=== PATIENT | male | born 1960 | race Caucasian/White ===

== ENCOUNTER 2017-03-01 14:39 | Emergency (ER) | payer MEDICARE, OTHER ==
[~2017-03-01] VITALS: Ht 175.3 cm; Wt 91.0 kg
[2017-03-01 14:41] VITALS: BP 144/81; PULSE 82; RESP 18; TEMP 99.1; O2SAT 97
--- NOTE | 2017-03-01 14:49 | PD ---
Physical Exam Time Seen by Provider: 14:47 Narrative Pt presents to the emergency department voluntarily for psychiatric evaluation for depression. Hx of bipolar disorder. Not taking any medications. Denies any ingestion of substances. Denies drugs or alcohol. VSS. Patient transported to J pod from triage. Data Data Last Documented VS Vital Signs Date Time Temp Pulse Resp B/P Pulse Ox O2 Delivery O2 Flow Rate FiO2 03/01/17 14:41 99.1 82 18 144/81 97 Room Air MDM Supervised Visit with ELVIS: Amanda Hanks Mar 01, 2017 14:49
--- NOTE | 2017-03-01 15:22 | PD ---
HPI Chief Complaint: Suicide Ideation/Attempt Time Seen by Provider: 15:18 Travel History International Travel<30 days: No Contact w/Intl Traveler<30days: No Traveled to known affect area: No History of Present Illness HPI 56-year-old male that presents to the ED for evaluation of psych. Patient comes here voluntarily for evaluation of psychiatric illness. Per patient he is bipolar and she takes medications for it but he ran out of his medication multiple days ago when he was released from half-way. Per patient he lost his Medicaid. Per patient he feels that he is more suicidal or having thoughts of hurting himself because he ran out of his medications. He denies any new injuries. He does state that he has a history of a chronic hernia in his left lower quadrant as well as left knee pain which is chronic from a previous injury during the . He denies any other medical problems. He says that his symptoms are moderate. He denies any suicidal ideation. He denies any drugs or alcohol. Per patient he tried to contact his community relations officer to get some help in the time to come here. Hence patient came here. PFSH Past Medical History Cardiovascular Problems: Yes (HTN) Social History Alcohol Use: No Tobacco Use: No Substance Use: No Allergies-Medications (Allergen,Severity, Reaction): Coded Allergies: Darvocet-N 100 (Verified Allergy, Severe, Seizures, 03/01/17) Review of Systems Except as stated in HPI: all other systems reviewed are Neg Physical Exam Narrative GENERAL: SKIN: Warm and dry. HEAD: Atraumatic. Normocephalic. EYES: Pupils equal and round. No scleral icterus. No injection or drainage. ENT: No nasal bleeding or discharge. Mucous membranes pink and moist. Tongue is midline. No uvula deviation. NECK: Trachea midline. No JVD. CARDIOVASCULAR: Regular rate and rhythm. No murmurs, S3, S4. RESPIRATORY: No accessory muscle use. Clear to auscultation. Breath sounds equal bilaterally. GASTROINTESTINAL: Abdomen soft, non-tender, nondistended. Hepatic and splenic margins not palpable. MUSCULOSKELETAL: Extremities without clubbing, cyanosis, or edema. No obvious deformities. Full range of motion of the upper and lower extremities bilaterally. Patient has a surgical scar noted on the anterior aspect of the left knee. Full range of motion of this knee. Patient does have a reducible hernia on the left lower quadrant of the abdomen. NEUROLOGICAL: Awake and alert. No obvious cranial nerve deficits. Motor grossly within normal limits. Five out of 5 muscle strength in the arms and legs. Normal speech. PSYCHIATRIC: Appropriate mood and affect; insight and judgment normal. Data Data Last Documented VS Vital Signs Date Time Temp Pulse Resp B/P Pulse Ox O2 Delivery O2 Flow Rate FiO2 03/01/17 14:41 99.1 82 18 144/81 97 Room Air Orders Complete Blood Count With Diff (03/01/17 15:02) Comprehensive Metabolic Panel (03/01/17 15:02) Psych Screen (03/01/17 15:) Drug Screen, Random Urine (03/01/17 15:) Alcohol (Ethanol) (03/01/17 15:) Valproic Acid (Depakene) (03/01/17 15:18) Diet Regular Basic (03/01/17 Dinner) Labs Laboratory Tests Test 03/01/17 03/01/17 18:00 18:24 White Blood Count 6.0 TH/MM3 Red Blood Count 4.49 MIL/MM3 Hemoglobin 14.0 GM/DL Hematocrit 42.3 % Mean Corpuscular Volume 94.4 FL Mean Corpuscular Hemoglobin 31.2 PG Mean Corpuscular Hemoglobin 33.1 % Concent Red Cell Distribution Width 13.4 % Platelet Count 217 TH/MM3 Mean Platelet Volume 9.9 FL Neutrophils (%) (Auto) 60.8 % Lymphocytes (%) (Auto) 24.7 % Monocytes (%) (Auto) 10.8 % Eosinophils (%) (Auto) 2.8 % Basophils (%) (Auto) 0.9 % Neutrophils # (Auto) 3.6 TH/MM3 Lymphocytes # (Auto) 1.5 TH/MM3 Monocytes # (Auto) 0.6 TH/MM3 Eosinophils # (Auto) 0.2 TH/MM3 Basophils # (Auto) 0.1 TH/MM3 CBC Comment DIFF FINAL Differential Comment Sodium Level 139 MEQ/L Potassium Level 4.1 MEQ/L Chloride Level 105 MEQ/L Carbon Dioxide Level 28.9 MEQ/L Anion Gap 5 MEQ/L Blood Urea Nitrogen 18 MG/DL Creatinine 0.88 MG/DL Estimat Glomerular Filtration 90 ML/MIN Rate Random Glucose 91 MG/DL Calcium Level 9.0 MG/DL Total Bilirubin 0.3 MG/DL Aspartate Amino Transf 26 U/L (AST/SGOT) Alanine Aminotransferase 22 U/L (ALT/SGPT) Alkaline Phosphatase 71 U/L Total Protein 7.4 GM/DL Albumin 3.9 GM/DL Valproic Acid (Depakene) Level 12 MCG/ML Ethyl Alcohol Level 4 MG/DL Urine Opiates Screen NEG Urine Barbiturates Screen NEG Urine Amphetamines Screen NEG Urine Benzodiazepines Screen NEG Urine Cocaine Screen NEG Urine Cannabinoids Screen NEG MDM Medical Decision Making Medical Screen Exam Complete: Yes Emergency Medical Condition: Yes Medical Record Reviewed: Yes Interpretation(s) CBC & BMP Diagram 03/01/17 18:00 Differential Diagnosis Depression versus suicidal ideation versus anxiety versus adjustment disorder versus mood disorder versus bipolar disorder versus schizophrenia versus paranoid disorder versus psychosis versus substance abuse versus alcohol abuse versus alcohol induced psychosis versus homicidality addition versus cutting versus personality disorder Narrative Course 56-year-old male that presents to the ED for evaluation of psych. Patient was properly examined and was found to have signs and symptoms consistent with psychiatric illness. No sign of acute medical distress. Labs were ordered. Patient will be medically cleared. Okay to be seen by psych. Mental health screening was discussed with the patient. Diagnosis Primary Impression: Bipolar 1 disorder Mandeep Wyatt Mar 01, 2017 15:21
[2017-03-01 18:21] LABS: AUTOMATED NEUTROPHIL # 3.6 TH/MM3 (1.8-7.7); BASOPHIL # 0.1 TH/MM3 (0-0.2); BASOPHIL % 0.9 % (0.0-2.0); EOSINOPHIL # 0.2 TH/MM3 (0-0.4); EOSINOPHIL % 2.8 % (0.0-4.0); HEMATOCRIT 42.3 % (39.0-51.0); HEMO FLAGS DIFF FINAL; LYMPH % 24.7 % (9.0-44.0); LYMPHOCYTE # 1.5 TH/MM3 (1.0-4.8); MEAN CELL VOLUME 94.4 FL (80.0-100.0); MEAN CORPUSCULAR HEMOGLOBIN 31.2 PG (27.0-34.0); MEAN CORPUSCULAR HGB CONC 33.1 % (32.0-36.0); MONO % 10.8 % (0.0-8.0); NEUT % 60.8 % (16.0-70.0); PLATELET COUNT 217 TH/MM3 (150-450); RED BLOOD COUNT 4.49 MIL/MM3 (4.50-5.90); RED CELL DISTRIBUTION WIDTH 13.4 % (11.6-17.2)
[2017-03-01 18:47] LABS: AMPHETAMINE, URINE NEG (NEG); BARBITURATES, URINE NEG (NEG); COCAINE, URINE NEG (NEG)
[2017-03-01 19:08] LABS: ALKALINE PHOSPHATASE 71 U/L (45-117); ALT (GPT) 22 U/L (12-78); ANION GAP 5 MEQ/L (5-15); AST (GOT) 26 U/L (15-37); BICARBONATE 28.9 MEQ/L (21.0-32.0); BLOOD UREA NITROGEN 18 MG/DL (7-18); CHLORIDE 105 MEQ/L (98-107); GLOMERULAR FILTRATION RATE 90 ML/MIN (>89); POTASSIUM 4.1 MEQ/L (3.5-5.1); SODIUM (NA) 139 MEQ/L (136-145); TOTAL BILIRUBIN ADULT 0.3 MG/DL (0.2-1.0)
[2017-03-02 02:00] VITALS: BP 137/77; PULSE 67; RESP 18; O2SAT 99
[2017-03-02 06:29] VITALS: BP 160/76; PULSE 62; RESP 18; O2SAT 99
[2017-03-02] MEDS ORDERED: ONDANSETRON ODT 4 MG TAB PO PRN (12:15)
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
[2017-03-02] MEDS ORDERED: DEPA500T PO (13:07)
[2017-03-02] MEDS ORDERED: IBUPROFEN 800 MG TAB PO SCH (14:00)
[2017-03-02] MEDS ORDERED: DIVALPROEX DR 500 MG TABEC PO SCH (14:00)
== END 2017-03-02 15:18 | disposition home or self-care (01) ==
LOC: NEPJ 14:39
DX: F31.9 Bipolar disorder, unspecified (principal); Z79.899 Other long term (current) drug therapy
CPT/HCPCS: 80053; 80164; 80307; 85025; 99284

== ENCOUNTER 2017-05-06 23:03 | Emergency (ER) | payer MEDICARE, MEDICAID ==
[~2017-05-06] VITALS: Ht 175.3 cm; Wt 92.0 kg
[~2017-05-06 23:03] MED LIST: DEPA500T PO
[2017-05-06 23:04] VITALS: BP 149/72; PULSE 96; RESP 16; TEMP 99.4; O2SAT 98
--- NOTE | 2017-05-06 23:21 | PD ---
Physical Exam Date Seen by Provider: May 06, 2017 Time Seen by Provider: 23:20 Data Data Last Documented VS Vital Signs Date Time Temp Pulse Resp B/P Pulse Ox O2 Delivery O2 Flow Rate FiO2 05/06/17 23:04 99.4 96 16 149/72 98 Room Air [facility] Supervised Visit with ELVIS: No Narrative Course 56 YO male with complaint of left knee pain after "twisting it" this morning. Hx knee replacement ~7 yrs ago. Vitals reviewed. Patient seen in triage. Awaiting bed placement. Valeria Morocho May 06, 2017 23:21
--- NOTE | 2017-05-06 23:40 | PD ---
HPI Chief Complaint: Injury Time Seen by Provider: 23:32 Travel History International Travel<30 days: No Contact w/Intl Traveler<30days: No Traveled to known affect area: No History of Present Illness HPI 56-year-old white male presents to emergency Department with complaints of left knee pain. He states he had knee replacement 7 years ago. He was at a concert at the [employer] when he was walking in his left knee popped. Since then he's had pain to the medial aspect of the knee. He states that he does not recall twisting or having any injury. He states that he has discomfort with ambulation. Some relief with remaining still. Patient states that he lives in [place] and is down visiting friends here in [facility]. PFSH Past Medical History Narrative Medical Hypertension, arthritis, bipolar, anxiety, diverticulitis, perforated viscus Bipolar Disorder: Yes Anxiety: Yes Cardiovascular Problems: Yes (HTN) Hypertension: Yes Psychiatric: Yes (bipolar, PTSD, anxiety) Thyroid Disease: Yes Tetanus Vaccination: < 5 Years Past Surgical History Narrative Surgical Left knee replacement, perforated viscus with diverting colostomy with reversal , abdominal hernia repair Social History Alcohol Use: No Tobacco Use: No Substance Use: No Allergies-Medications (Allergen,Severity, Reaction): Coded Allergies: Darvocet-N 100 (Verified Allergy, Severe, Seizures, 05/06/17) Reported Meds & Prescriptions Reported Meds & Active Scripts Active Depakote DR (Divalproex Sodium) 500 Mg Tabdr 500 Mg PO BID 14 Days Review of Systems Except as stated in HPI: all other systems reviewed are Neg General / Constitutional: No: Fever, Chills Eyes: No: Blurred Vision, Photophobia HENT: No: Headaches, Sore Throat Cardiovascular: No: Chest Pain or Discomfort, Palpitations Respiratory: No: Cough, Shortness of Breath Gastrointestinal: Positive: Nausea, Vomiting, Diarrhea (patient had nausea, vomiting and diarrhea earlier. His last episode was earlier this afternoon. None now.) Genitourinary: No: Frequency, Dysuria Musculoskeletal: Positive: Arthralgias, Limited ROM, Pain Skin: No Itching, No Dryness Physical Exam Narrative GENERAL: This is a well-nourished, well-developed patient, in no apparent distress. SKIN: No rashes, ecchymoses or lesions. Warm and dry. HEAD: Atraumatic. Normocephalic. EYES: PERRL, EOMI, no discharge or injection. No scleral icterus. EARS: Clear NOSE: Nasal turbinates appear normal. THROAT: Mucosa pink and moist. Airway patent. NECK: Trachea midline. supple, moves head freely. LUNGS: Clear to auscultation. CV: Regular in rhythm. ABDOMEN: Soft nontender. EXT: No clubbing cyanosis or edema. Examination of left lower extremity reveals no obvious joint effusion. He has a large surgical scar over the anterior knee. He has full extension and full flexion. There is mild tenderness to the medial component of the knee. Patient ambulates with an antalgic gait. He has no pain in the hip, ankle or foot. Intact sensation with good distal pulses. Data Data Last Documented VS Vital Signs Date Time Temp Pulse Resp B/P Pulse Ox O2 Delivery O2 Flow Rate FiO2 05/06/17 23:04 99.4 96 16 149/72 98 Room Air Orders Knee, Complete (4vws) (05/06/17 23:27) [facility] Medical Decision Making Medical Screen Exam Complete: Yes Emergency Medical Condition: Yes Medical Record Reviewed: Yes Interpretation(s) Left knee: Status post knee replacement. No evidence of fracture. No evidence of hardware loosening. Differential Diagnosis MDM: High Differential diagnoses: Fracture, sprain, strain, dislocation, contusion, neurovascular injury Narrative Course X-ray of the left knee is negative for acute injury. This is left knee sprain Patient's given Motrin 800 mg by mouth. Diagnosis Primary Impression: Left knee sprain Qualified Code: S83.92XA - Sprain of left knee, unspecified ligament, initial encounter Patient Instructions: General Instructions Additional Instructions: Rest. Elevation. Ice packs for the next 3 days. Rafita wrap. Activity as tolerated. Medications as directed Follow-up with an orthopedist or your doctor in one week. Return to the ER if any problems Med/Other Pt SpecificInfo: Prescription(s) given Disposition: 01 DISCHARGE HOME Condition: Stable Guy Goldman May 06, 2017 23:40
[2017-05-06] MEDS ORDERED: DICL75TA PO (23:41)
[2017-05-06] MEDS ORDERED: CELE10TA PO (23:43)
[2017-05-06] MEDS ORDERED: LISI-515 PO (23:43)
[2017-05-06] MEDS ORDERED: LATA0.002 EACH EYE (23:43)
[2017-05-06] MEDS ORDERED: TIMO0.5S30 EACH EYE (23:43)
[2017-05-06] MEDS ORDERED: LEVO25TA4 PO (23:43)
[2017-05-06] MEDS ORDERED: IBUPROFEN 800 MG TAB PO ONE (23:45)
--- NOTE | 2017-05-07 00:06 | RADRPT ---
EXAM DATE/TIME: 05/06/2017 23:55 [facility] COMPARISON: No previous studies available for comparison. INDICATIONS : [place] "pop" 3 days ago. Today noticed swelling and throbbing. No known injury. Total knee replacement 7 years ago. MEDICAL HISTORY : None. SURGICAL HISTORY : Total knee replacement, left. ENCOUNTER: Initial ACUITY: 3 days PAIN SCORE: 6/10 LOCATION: Left knee FINDINGS: 5 views of the left knee. Longstem total knee prosthesis in place. Bone alignment within normal limit s. No evidence of fracture. Small joint effusion. No evidence of abnormal lucency at the bone prosth esis interfaces. CONCLUSION: Small joint effusion. Total knee prosthesis. Osmany Kirk MD on May 07, 2017 at 0:02 Board Certified Radiologist. This report was verified electronically.
[2017-05-07 00:19] VITALS: BP 156/74
== END 2017-05-07 00:45 | disposition home or self-care (01) ==
LOC: NEPD 23:03
DX: S83.92XA Sprain of unspecified site of left knee, initial encounter (principal); Z96.652 Presence of left artificial knee joint; I10 Essential (primary) hypertension; F43.10 Post-traumatic stress disorder, unspecified; X58.XXXA Exposure to other specified factors, initial encounter; Y93.01 Activity, walking, marching and hiking; Y92.838 Other recreation area as the place of occurrence of the external cause
CPT/HCPCS: 73564; 99283

== ENCOUNTER 2017-12-06 12:26 | Emergency (ER) | payer OTHER, MEDICAID ==
[~2017-12-06] VITALS: Ht 175.3 cm; Wt 86.4 kg
[~2017-12-06 12:26] MED LIST changes: +ASPI-516 CHEW; +CELE10TA PO; -DEPA500T PO; +DEPA500T3 PO; +HYDR12.57 PO; +MELO7.5T27 PO; +NORV2.5T PO
[2017-12-06 12:28] VITALS: BP 123/79; PULSE 115; RESP 14; TEMP 98.2; O2SAT 96
[2017-12-06] MEDS ORDERED: ASPI81CH6 CHEW (13:55)
--- NOTE | 2017-12-06 14:11 | PD ---
HPI Chief Complaint: Skin Problem Time Seen by Provider: 13:56 Travel History International Travel<30 days: No Contact w/Intl Traveler<30days: No Traveled to known affect area: No History of Present Illness HPI 57-year-old male presents to the emergency department complaint of a tick bite to his left lower leg/calf area that occurred 2 days ago. He went to his primary care provider and was told to come to the emergency department because the site looked infected. Patient denies pain to the area. He denies fever, vomiting, confusion, disorientation, change in mentation, slurred speech, headaches. Denies focal deficits or weakness. Denies paresthesias, loss of sensation, decreased range of motion, decreased strength to the affected extremity. Reports being up-to-date on his tetanus vaccination. Has not taken any medication or tried any treatments to alleviate his symptoms. Symptoms are mild in severity. No known aggravating or relieving factors. Allergies to acetaminophen and propoxyphene. History of hypertension. Has no other medical complaints. No other modifying factors or associated signs and symptoms. PFSH Past Medical History Bipolar Disorder: Yes Anxiety: Yes Heart Rhythm Problems: No Cardiac Catheterization: No Cardiovascular Problems: Yes (HTN) High Cholesterol: No Congestive Heart Failure: No Diabetes: No Heparin Induced Thrombocytopen: No Hypertension: Yes Inguinal Hernia: Yes (HAS APPT. WITH DR TOMORROW ) Psychiatric: Yes (bipolar, PTSD, anxiety) Immunizations Current: Yes Thyroid Disease: Yes Past Surgical History Abdominal Surgery: Yes (HERNIA RX, COLON RESECTION) Coronary Artery Bypass Graft: No Social History Alcohol Use: No Tobacco Use: No Substance Use: No Allergies-Medications (Allergen,Severity, Reaction): Coded Allergies: acetaminophen (Verified Allergy, Severe, Seizures, 12/06/17) propoxyphene (Verified Allergy, Severe, Seizures, 12/06/17) Reported Meds & Prescriptions Reported Meds & Active Scripts Active Reported Aspirin Low Dose (Aspirin) 81 Mg Chew 81 Mg CHEW DAILY Depakote ER (Divalproex Sodium) 500 Mg Hero 500 Mg PO HS Aspirin 81 Mg Chew 81 Mg CHEW DAILY Meloxicam 7.5 Mg Tab 7.5 Mg PO DAILY Norvasc (Amlodipine Besylate) 2.5 Mg Tab 2.5 Mg PO DAILY Celexa (Citalopram Hydrobromide) 10 Mg Tab 10 Mg PO DAILY Review of Systems Except as stated in HPI: all other systems reviewed are Neg Physical Exam Narrative GENERAL: Well-nourished, well-developed male patient, in no acute distress SKIN: Warm and dry. Left lower medial calf area with small, less than half a centimeter, erythemic ring around a pin point darkened spot. No drainage. No signs of cellulitis. HEAD: Atraumatic. Normocephalic. EYES: Pupils equal and round. No scleral icterus. No injection or drainage. ENT: Mucosa pink and moist. Airway patent. NECK: Trachea midline. CARDIOVASCULAR: Regular rate. RESPIRATORY: No accessory muscle use. GASTROINTESTINAL: Rounded. MUSCULOSKELETAL: No obvious deformities. No clubbing. No cyanosis. No edema. NEUROLOGICAL: Awake and alert. Oriented 3. No obvious cranial nerve deficits. Motor grossly within normal limits. Normal speech. PSYCHIATRIC: Appropriate mood and affect; insight and judgment normal. Data Data Last Documented VS Vital Signs Date Time Temp Pulse Resp B/P (MAP) Pulse Ox O2 Delivery O2 Flow Rate FiO2 12/06/17 12:28 98.2 115 14 123/79 (94) 96 Orders Orders Doxycycline (Vibramycin) (12/06/17 14:15) Ed Discharge Order (12/06/17 14:11) [facility] Medical Decision Making Medical Screen Exam Complete: Yes Emergency Medical Condition: Yes Medical Record Reviewed: Yes Differential Diagnosis Tick bite, Lyme's disease prophylaxis, medical clearance Narrative Course 57-year-old male with a tick bite to his left lower field. He is afebrile and nontoxic-appearing. Denies fever, vomiting. Up-to-date on tetanus. Doxycycline 200 mg 1 time dose administered in the ER. Instructed patient to follow up with primary care provider. Patient verbalizes understanding and agreement with treatment plan. Patient is medically cleared and stable for discharge. Discussed reasons to return to the emergency department. Patient agrees with treatment plan. The patients vital signs are stable and the patient is stable for outpatient follow-up and treatment. Patient discharged home, stable and in no acute distress. Diagnosis Primary Impression: Tick bite of calf Qualified Codes: S80.862A - Insect bite (nonvenomous), left lower leg, initial encounter; W57.XXXA - Bitten or stung by nonvenomous insect and other nonvenomous arthropods, initial encounter Referrals: Primary Care Physician Patient Instructions: General Instructions, Tick Bite (ED) Additional Instructions: Follow-up with primary care provider Return to the emergency department immediately with worsening of symptoms Med/Other Pt SpecificInfo: No Change to Meds, No Meds Exist/No RX given Disposition: 01 DISCHARGE HOME Condition: Stable Amanda aSmuels Dec 06, 2017 14:11
[2017-12-06] MEDS ORDERED: DOXYCYCLINE HYCLATE 100 MG CAP PO ONE (14:15)
== END 2017-12-06 14:22 | disposition home or self-care (01) ==
LOC: NEPK 12:26
DX: S80.862A Insect bite (nonvenomous), left lower leg, initial encounter (principal); F31.9 Bipolar disorder, unspecified; I10 Essential (primary) hypertension; F43.10 Post-traumatic stress disorder, unspecified; F41.9 Anxiety disorder, unspecified; E07.9 Disorder of thyroid, unspecified; W57.XXXA Bitten or stung by nonvenomous insect and other nonvenomous arthropods, initial encounter
CPT/HCPCS: 99283

== ENCOUNTER 2017-12-23 20:25 | Emergency (ER) | payer OTHER, MEDICAID ==
[~2017-12-23 20:25] MED LIST changes: +ASPI81CH6 CHEW; -HYDR12.57 PO
[2017-12-23 20:32] VITALS: BP 137/82; PULSE 78; RESP 18; TEMP 97.6; O2SAT 96
[2017-12-23] MEDS ORDERED: SODIUM CHLOR 0.9% 1000 ML INJ 1,000 ML IV SCH (20:42)
[2017-12-23] MEDS ORDERED: MORPHINE SULFATE 2 MG/ML INJ IV PUSH ONE (20:45)
[2017-12-23] MEDS ORDERED: SODIUM CHLORIDE 0.9% FLUSH 10 ML FLUSH IV FLUSH PRN (20:45)
[2017-12-23] MEDS ORDERED: ONDANSETRON HCL 4 MG/2 ML VIAL IVP ONE (20:45)
--- NOTE | 2017-12-23 20:47 | PD ---
HPI Chief Complaint: GI Complaint Time Seen by Provider: 20:41 Travel History International Travel<30 days: No Contact w/Intl Traveler<30days: No Traveled to known affect area: No History of Present Illness HPI 57-year-old male presents to the emergency department for evaluation of abdominal pain. Patient states he had hernia surgery on at [facility]. He reports increasing abdominal pain. He has 3 small incisions over the abdomen. Patient states they did not treat him well at [facility] and he had to leave AGAINST MEDICAL ADVICE. He is homeless and did not receive antibiotics for pain medication upon leaving. The patient denies any fevers. No chest pain or shortness of breath. Patient does report history of psychiatric illness, hypertension. Patient states pain is 10/10, mostly the left lower quadrant without radiation, aching and sharp. Moderate severity. No exacerbating or alleviating factors. PFSH Past Medical History Bipolar Disorder: Yes Anxiety: Yes Heart Rhythm Problems: No Cardiac Catheterization: No Cardiovascular Problems: Yes (HTN) High Cholesterol: No Congestive Heart Failure: No Diabetes: No Diminished Hearing: No Heparin Induced Thrombocytopen: No Hypertension: Yes Inguinal Hernia: Yes Psychiatric: Yes (bipolar, PTSD, anxiety) Immunizations Current: Yes Thyroid Disease: Yes Past Surgical History Abdominal Surgery: Yes (HERNIA RX, COLON RESECTION) Coronary Artery Bypass Graft: No Social History Alcohol Use: No Tobacco Use: No Substance Use: No Allergies-Medications (Allergen,Severity, Reaction): Coded Allergies: acetaminophen (Verified Allergy, Severe, Seizures, 12/06/17) propoxyphene (Verified Allergy, Severe, Seizures, 12/06/17) Reported Meds & Prescriptions Reported Meds & Active Scripts Active Reported Aspirin Low Dose (Aspirin) 81 Mg Chew 81 Mg CHEW DAILY Depakote ER (Divalproex Sodium) 500 Mg Hero 500 Mg PO HS Aspirin 81 Mg Chew 81 Mg CHEW DAILY Meloxicam 7.5 Mg Tab 7.5 Mg PO DAILY Norvasc (Amlodipine Besylate) 2.5 Mg Tab 2.5 Mg PO DAILY Celexa (Citalopram Hydrobromide) 10 Mg Tab 10 Mg PO DAILY Review of Systems Except as stated in HPI: all other systems reviewed are Neg Physical Exam Narrative GENERAL: Well-nourished, well-developed male patient, afebrile. SKIN: Focused skin assessment warm/dry. HEAD: Normocephalic. Atraumatic. EYES: No scleral icterus. No injection or drainage. NECK: Supple, trachea midline. No JVD or lymphadenopathy. CARDIOVASCULAR: Regular rate and rhythm without murmurs, gallops, or rubs. RESPIRATORY: Breath sounds equal bilaterally. No accessory muscle use. Lungs sounds are clear to auscultation. GASTROINTESTINAL: Abdomen soft and nondistended. Patient has diffuse tenderness to palpation. He has 3 small incisions without erythema or drainage. Steri-Strips are in place. MUSCULOSKELETAL: No cyanosis, or edema. BACK: Nontender without obvious deformity. No CVA tenderness. Data Data Last Documented VS Vital Signs Date Time Temp Pulse Resp B/P (MAP) Pulse Ox O2 Delivery O2 Flow Rate FiO2 12/23/17 20:53 16 100 12/23/17 20:32 97.6 78 137/82 (100) Orders Orders Complete Blood Count With Diff (12/23/17 20:42) Comprehensive Metabolic Panel (12/23/17 20:42) Lipase (12/23/17 20:42) Prothrombin Time / Inr (Pt) (12/23/17 20:42) Act Partial Throm Time (Ptt) (12/23/17 20:42) Urinalysis - C+S If Indicated (12/23/17 20:42) Ct Abd/Pel W Iv Contrast(Rout) (12/23/17 20:42) Iv Access Insert/Monitor (12/23/17 20:42) Ecg Monitoring (12/23/17 20:42) Oximetry (12/23/17 20:42) Ondansetron Inj (Zofran Inj) (12/23/17 20:45) Sodium Chlor 0.9% 1000 Ml Inj (Ns 1000 M (12/23/17 20:42) Sodium Chloride 0.9% Flush (Ns Flush) (12/23/17 20:45) Morphine Inj (Morphine Inj) (12/23/17 20:45) Electrocardiogram (12/23/17 20:40) Iohexol 350 Inj (Omnipaque 350 Inj) (12/23/17 22:04) Labs Laboratory Tests Test 12/23/17 20:45 12/23/17 21:30 White Blood Count 6.9 TH/MM3 Red Blood Count 4.25 MIL/MM3 Hemoglobin 13.9 GM/DL Hematocrit 40.2 % Mean Corpuscular Volume 94.6 FL Mean Corpuscular Hemoglobin 32.7 PG Mean Corpuscular Hemoglobin Concent 34.6 % Red Cell Distribution Width 12.9 % Platelet Count 280 TH/MM3 Mean Platelet Volume 8.4 FL Neutrophils (%) (Auto) 61.8 % Lymphocytes (%) (Auto) 26.5 % Monocytes (%) (Auto) 10.2 % Eosinophils (%) (Auto) 1.0 % Basophils (%) (Auto) 0.5 % Neutrophils # (Auto) 4.3 TH/MM3 Lymphocytes # (Auto) 1.8 TH/MM3 Monocytes # (Auto) 0.7 TH/MM3 Eosinophils # (Auto) 0.1 TH/MM3 Basophils # (Auto) 0.0 TH/MM3 CBC Comment DIFF FINAL Differential Comment Prothrombin Time 9.9 SEC Prothromb Time International Ratio 1.0 RATIO Activated Partial Thromboplast Time 24.8 SEC Blood Urea Nitrogen 18 MG/DL Creatinine 1.00 MG/DL Random Glucose 95 MG/DL Total Protein 6.9 GM/DL Albumin 3.3 GM/DL Calcium Level 8.7 MG/DL Alkaline Phosphatase 76 U/L Aspartate Amino Transf (AST/SGOT) 64 U/L Alanine Aminotransferase (ALT/SGPT) 32 U/L Total Bilirubin 0.1 MG/DL Sodium Level 140 MEQ/L Potassium Level 3.9 MEQ/L Chloride Level 107 MEQ/L Carbon Dioxide Level 25.7 MEQ/L Anion Gap 7 MEQ/L Estimat Glomerular Filtration Rate 77 ML/MIN Lipase 399 U/L Urine Color LIGHT-YELLOW Urine Turbidity CLEAR Urine pH 6.5 Urine Specific [place] 1.013 Urine Protein NEG mg/dL Urine Glucose (UA) NEG mg/dL Urine Ketones NEG mg/dL Urine Occult Blood NEG Urine Nitrite NEG Urine Bilirubin NEG Urine Urobilinogen LESS THAN 2.0 MG/DL Urine Leukocyte Esterase NEG Urine WBC 1 /hpf Urine Mucus FEW /lpf Microscopic Urinalysis Comment CULT NOT INDICATED MDM Medical Decision Making Medical Screen Exam Complete: Yes Emergency Medical Condition: Yes Medical Record Reviewed: Yes Interpretation(s) Last Impressions Abdomen/Pelvis CT 12/23/172041 Signed Impressions: Service Date/Time: Saturday, December 23, 2017 22:04 - CONCLUSION: 1. There are gas bubbles within the left inguinal canal not present previously with postsurgical changes at the site with a couple of gas bubbles behind rectus abdominous muscle adjacent to bladder could be postprocedural if the patient has had surgery in the interim. 2. Stable right middle lobe nodule. Haris Huitron MD Differential Diagnosis Postop pain versus postop infection versus UTI versus diverticulitis Narrative Course 57-year-old male presents to the emergency department for evaluation after a surgery on a [facility] and left AGAINST MEDICAL ADVICE. We will obtain the records from [facility]. IV access established. CBC, CMP , lipase, PTT, PT/INR, UA, CT abdomen/pelvis with IV contrast are ordered and pending. Patient is given normal saline 1 L IV bolus, Zofran 4 mg IV, morphine 4 mg IV. CBC shows no acute abnormality. CMP shows no acute abnormality. Lipase is 399. Coags are unremarkable. UA is negative for acute infection. CT abdomen/ pelvis shows There are gas bubbles within the left inguinal canal not present previously with postsurgical changes at the site with a couple of gas bubbles behind rectus abdominous muscle adjacent to bladder could be postprocedural if the patient has had surgery in the interim; Stable right middle lobe nodule. I was able to obtain the records from [facility]. The patient had a ventral hernia laparoscopic repair done on December 21, 2017. He was going to be sent to rehabilitation after a 3 day stay, but left AGAINST MEDICAL ADVICE. According to the records, he actually went back to [facility] yesterday and his surgeon saw him. The surgeon saw the patient and noted that he did not have any postoperative complications and was stable for discharge. Case management saw him and referred him to a snf. His surgeon was Dr. Ramos. Patient is stable for discharge. He is instructed to follow-up with his surgeon. Patient verbalized understanding. Diagnosis Primary Impression: Postoperative abdominal pain Referrals: General Surgeon call for appointment Patient Instructions: Abdominal Pain (ED), General Instructions Additional Instructions: Follow-up with your surgeon. Return to the emergency department for any acute worsening of symptoms. Med/Other Pt SpecificInfo: No Change to Meds Disposition: 01 DISCHARGE HOME Condition: Stable Irene Arthur SENG Dec 23, 2017 20:47
[2017-12-23 20:53] VITALS: RESP 16; O2SAT 100
[2017-12-23 20:57] LABS: AUTOMATED NEUTROPHIL # 4.3 TH/MM3 (1.8-7.7); BASOPHIL % 0.5 % (0.0-2.0); EOSINOPHIL # 0.1 TH/MM3 (0-0.4); HEMATOCRIT 40.2 % (39.0-51.0); HEMOGLOBIN 13.9 GM/DL (13.0-17.0); LYMPH % 26.5 % (9.0-44.0); LYMPHOCYTE # 1.8 TH/MM3 (1.0-4.8); MEAN CELL VOLUME 94.6 FL (80.0-100.0); MEAN CORPUSCULAR HEMOGLOBIN 32.7 PG (27.0-34.0); MEAN CORPUSCULAR HGB CONC 34.6 % (32.0-36.0); MEAN PLATELET VOLUME 8.4 FL (7.0-11.0); MONO % 10.2 % (0.0-8.0); MONOCYTE # 0.7 TH/MM3 (0-0.9); NEUT % 61.8 % (16.0-70.0); PLATELET COUNT 280 TH/MM3 (150-450); RED BLOOD COUNT 4.25 MIL/MM3 (4.50-5.90); RED CELL DISTRIBUTION WIDTH 12.9 % (11.6-17.2); WHITE BLOOD COUNT 6.9 TH/MM3 (4.0-11.0)
[2017-12-23 21:09] LABS: ALBUMIN 3.3 GM/DL (3.4-5.0); AST (GOT) 64 U/L (15-37); BICARBONATE 25.7 MEQ/L (21.0-32.0); BLOOD UREA NITROGEN 18 MG/DL (7-18); CALCIUM 8.7 MG/DL (8.5-10.1); CHLORIDE 107 MEQ/L (98-107); GLOMERULAR FILTRATION RATE 77 ML/MIN (>89); GLUCOSE,RANDOM 95 MG/DL (74-106); SODIUM (NA) 140 MEQ/L (136-145)
[2017-12-23 21:10] LABS: ALT (GPT) 32 U/L (12-78)
[2017-12-23 21:12] LABS: ALKALINE PHOSPHATASE 76 U/L (45-117); TOTAL BILIRUBIN ADULT 0.1 MG/DL (0.2-1.0); TOTAL PROTEIN 6.9 GM/DL (6.4-8.2)
[2017-12-23 21:14] LABS: PROTHROMBIN TIME - PATIENT 9.9 SEC (9.8-11.6)
[2017-12-23 21:43] LABS: BILIRUBIN, URINE NEG (NEG); BLOOD, URINE NEG (NEG); GLUCOSE,URINE NEG (NEG); KETONE, URINE NEG (NEG); MUCUS URINE FEW /lpf (OCC); NITRITE,URINE NEG (NEG); PH, URINE 6.5 (5.0-8.5); URINE COLOR LIGHT-YELLOW (YELLW/STRAW); URINE LEUKOCYTE ESTERASE NEG (NEG)
[2017-12-23] MEDS ORDERED: IOHEXOL 350 MG/ML 10 ML VIAL (for RAD DIAG) IVCONTRAST ONE (22:04)
--- NOTE | 2017-12-23 22:20 | RADRPT ---
EXAM DATE/TIME: 12/23/2017 22:04 [place] COMPARISON: CT ABDOMEN & PELVIS W/O CONTRAST, November 20, 2017, 19:24. INDICATIONS : Abdominal pain. IV CONTRAST: 96 cc Omnipaque 350 (iohexol) IV ORAL CONTRAST: No oral contrast ingested. RADIATION DOSE: 14.49 CTDIvol (mGy) MEDICAL HISTORY : Hypertension. Cardiovascular disease SURGICAL HISTORY : Colon resection. Inguinal hernia repair. ENCOUNTER: Initial ACUITY: 1 day PAIN SCALE: 7/10 LOCATION: abdomen TECHNIQUE: Volumetric scanning of the abdomen and pelvis was performed. Using automated exposure control and ad justment of the mA and/or kV according to patient size, radiation dose was kept as low as reasonably achievable to obtain optimal diagnostic quality images. DICOM format image data is available electro nically for review and comparison. FINDINGS: CT Abdomen: The liver, spleen, pancreas, adrenals are unremarkable. There are tiny cysts in the kidne y is not changed. There is no evidence for any appreciable pathological adenopathy, free fluid, or kendall wel obstruction. Approximate 4-5 mm right middle lobe nodule has not changed. CT pelvis: There is no evidence for mass, abscess formation, or any significant adenopathy within the pelvis. There are gas bubbles within the left inguinal canal and postsurgical changes at this site w ould a gas bubble in midline adjacent to rectus abdominis muscle in addition to a couple of gas bubbl es in the right lower abdomen the kidneys tissue. Has the patient had surgical procedure in the inter im? CONCLUSION: 1. There are gas bubbles within the left inguinal canal not present previously with postsurgical patricio ges at the site with a couple of gas bubbles behind rectus abdominous muscle adjacent to bladder coul d be postprocedural if the patient has had surgery in the interim. 2. Stable right middle lobe nodule. Haris Huitron MD on December 23, 2017 at 22:12 Board Certified Radiologist. This report was verified electronically.
--- NOTE | 2017-12-24 12:47 | EKG ---
Date Performed: 12/23/2017 Time Performed: 20:40:43 PTAGE: 57 years EKG: Sinus rhythm NORMAL ECG Compared to PREVIOUS TRACING , QRS voltage slightly larger in precordial leads, otherwise no signific ant change. PREVIOUS TRACIN11/21/2017 05.01 DOCTOR: Alan Ibrahim Interpretating Date/Time 12/24/2017 12:47:03
== END 2017-12-23 22:56 | disposition home or self-care (01) ==
LOC: NEPE 20:25
DX: G89.18 Other acute postprocedural pain (principal); R10.9 Unspecified abdominal pain; F31.9 Bipolar disorder, unspecified; I10 Essential (primary) hypertension; E07.9 Disorder of thyroid, unspecified; F41.9 Anxiety disorder, unspecified; F43.10 Post-traumatic stress disorder, unspecified; Z59.0 Homelessness; Z98.890 Other specified postprocedural states
CPT/HCPCS: 74177; 80053; 81001; 83690; 85025; 85610; 85730; 93005; 96361; 96374; 96375; 99285; J2270; J2405; J7030; Q9967

== ENCOUNTER 2018-01-10 16:39 | Inpatient (IN) | payer OTHER, MEDICARE ==
[~2018-01-10] VITALS: Ht 175.3 cm; Wt 86.0 kg
[2018-01-10 16:40] VITALS: BP 148/73; PULSE 88; RESP 14; TEMP 98.2; O2SAT 95
[2018-01-10 18:21] LABS: AUTOMATED NEUTROPHIL # 4.6 TH/MM3 (1.8-7.7); BASOPHIL # 0.1 TH/MM3 (0-0.2); BASOPHIL % 1.6 % (0.0-2.0); EOSINOPHIL # 0.2 TH/MM3 (0-0.4); EOSINOPHIL % 3.2 % (0.0-4.0); HEMATOCRIT 42.6 % (39.0-51.0); HEMOGLOBIN 14.4 GM/DL (13.0-17.0); LYMPHOCYTE # 1.5 TH/MM3 (1.0-4.8); MEAN CORPUSCULAR HEMOGLOBIN 31.9 PG (27.0-34.0); MEAN CORPUSCULAR HGB CONC 33.9 % (32.0-36.0); MEAN PLATELET VOLUME 8.6 FL (7.0-11.0); MONO % 10.2 % (0.0-8.0); MONOCYTE # 0.7 TH/MM3 (0-0.9); PLATELET COUNT 301 TH/MM3 (150-450); RED BLOOD COUNT 4.53 MIL/MM3 (4.50-5.90); RED CELL DISTRIBUTION WIDTH 12.8 % (11.6-17.2); WHITE BLOOD COUNT 7.1 TH/MM3 (4.0-11.0)
[2018-01-10 18:32] LABS: AMORPHOUS SEDIMENT, URINE FEW; BILIRUBIN, URINE NEG (NEG); BLOOD, URINE NEG (NEG); GLUCOSE,URINE NEG (NEG); KETONE, URINE NEG (NEG); NITRITE,URINE NEG (NEG); URINE COLOR YELLOW (YELLW/STRAW); URINE LEUKOCYTE ESTERASE NEG (NEG)
[2018-01-10 18:36] LABS: ALBUMIN 3.5 GM/DL (3.4-5.0); ALT (GPT) 10 U/L (12-78); AST (GOT) 13 U/L (15-37); BICARBONATE 30.6 MEQ/L (21.0-32.0); BLOOD UREA NITROGEN 14 MG/DL (7-18); CALCIUM 8.4 MG/DL (8.5-10.1); CHLORIDE 104 MEQ/L (98-107); CREATININE 1.05 MG/DL (0.60-1.30); GLOMERULAR FILTRATION RATE 73 ML/MIN (>89); GLUCOSE,RANDOM 100 MG/DL (74-106); SODIUM (NA) 139 MEQ/L (136-145)
[2018-01-10 18:39] LABS: ALKALINE PHOSPHATASE 86 U/L (45-117); TOTAL BILIRUBIN ADULT 0.1 MG/DL (0.2-1.0); TOTAL PROTEIN 7.6 GM/DL (6.4-8.2)
[2018-01-10 19:10] VITALS: BP 141/67; PULSE 75; RESP 18; O2SAT 97
[2018-01-10] MEDS ORDERED: MORPHINE SULFATE 4 MG/ML INJ IV PUSH ONE (19:45)
[2018-01-10] MEDS ORDERED: PIPERACIL-TAZO 3.375 GM PREMIX 50 ML IV ONE (19:45)
[2018-01-10] MEDS ORDERED: PIPERACIL-TAZO 3.375 GM PREMIX 50 ML IV SCH (19:45)
[2018-01-10] MEDS ORDERED: ONDANSETRON HCL 4 MG/2 ML VIAL IV PUSH ONE (19:45)
--- NOTE | 2018-01-10 20:45 | PD ---
HPI Chief Complaint: Abdominal Pain Time Seen by Provider: 19:08 Travel History International Travel<30 days: No Contact w/Intl Traveler<30days: No Traveled to known affect area: No History of Present Illness HPI Dr Nobles did hernia repair with laproscopic dec 21 now had outpt CTA for abdo pain LLQ and there is a LLQ abscess 6cm with feverish feeling and tenderness LLQ nausea and radiation of pain down left obturator distribution. PFSH Past Medical History Bipolar Disorder: Yes Anxiety: Yes Heart Rhythm Problems: No Cardiac Catheterization: No Cardiovascular Problems: Yes (HTN) High Cholesterol: No Congestive Heart Failure: No Diabetes: No Diminished Hearing: No Heparin Induced Thrombocytopen: No Hypertension: Yes Inguinal Hernia: Yes Psychiatric: Yes (bipolar, PTSD, anxiety) Immunizations Current: Yes Thyroid Disease: Yes Influenza Vaccination: Yes Past Surgical History Abdominal Surgery: Yes (HERNIA RX, COLON RESECTION) Coronary Artery Bypass Graft: No Social History Alcohol Use: Yes (MODERATE) Tobacco Use: No Substance Use: No Allergies-Medications (Allergen,Severity, Reaction): Coded Allergies: acetaminophen (Verified Allergy, Severe, Seizures, 12/06/17) propoxyphene (Verified Allergy, Severe, Seizures, 12/06/17) Reported Meds & Prescriptions Reported Meds & Active Scripts Active Reported Depakote ER (Divalproex Sodium) 500 Mg Hero 500 Mg PO HS Aspirin 81 Mg Chew 81 Mg CHEW DAILY Norvasc (Amlodipine Besylate) 2.5 Mg Tab 2.5 Mg PO DAILY Celexa (Citalopram Hydrobromide) 10 Mg Tab 10 Mg PO DAILY Review of Systems Except as stated in HPI: all other systems reviewed are Neg General / Constitutional: Positive: Chills Gastrointestinal: Positive: Nausea, Abdominal Pain (LLQ pain radiates down leg left ) Physical Exam Narrative GENERAL: non toxic appearance and no vomit no distension , no obvious distress SKIN: Warm and dry. HEAD: Atraumatic. Normocephalic. EYES: Pupils equal and round. No scleral icterus. No injection or drainage. ENT: No nasal bleeding or discharge. Mucous membranes pink and moist. NECK: Trachea midline. No JVD. CARDIOVASCULAR: Regular rate and rhythm. RESPIRATORY: No accessory muscle use. Clear to auscultation. Breath sounds equal bilaterally. GASTROINTESTINAL: Abdomen left lower quadrant tenderness no distension. Hepatic and splenic margins not palpable. MUSCULOSKELETAL: Extremities without clubbing, cyanosis, or edema. No obvious deformities. NEUROLOGICAL: Awake and alert. No obvious cranial nerve deficits. Motor grossly within normal limits. Five out of 5 muscle strength in the arms and legs. Normal speech. PSYCHIATRIC: Appropriate mood and affect; insight and judgment normal. Data Data Last Documented VS Vital Signs Date Time Temp Pulse Resp B/P (MAP) Pulse Ox O2 Delivery O2 Flow Rate FiO2 01/10/18 22:16 75 18 134/90 (105) 97 Room Air 01/10/18 16:40 98.2 Orders Orders Sepsis Workup Initiated (01/10/18 ) Complete Blood Count With Diff (01/10/18 17:05) Comprehensive Metabolic Panel (01/10/18 17:05) Lactic Acid Sepsis Protocol (01/10/18 17:05) Urinalysis - C+S If Indicated (01/10/18 17:05) Blood Culture (01/10/18 17:05) Piperacil-Tazo 3.375 Gm Premix (Zosyn 3. (01/10/18 19:45) Piperacil-Tazo 3.375 Gm Premix (Zosyn 3. (01/10/18 19:45) Ondansetron Inj (Zofran Inj) (01/10/18 19:45) Morphine Inj (Morphine Inj) (01/10/18 19:45) Morphine Inj (Morphine Inj) (01/10/18 19:45) Admit Order (Ed Use Only) (01/10/18 22:14) Labs Laboratory Tests Test 01/10/18 17:50 White Blood Count 7.1 TH/MM3 Red Blood Count 4.53 MIL/MM3 Hemoglobin 14.4 GM/DL Hematocrit 42.6 % Mean Corpuscular Volume 94.0 FL Mean Corpuscular Hemoglobin 31.9 PG Mean Corpuscular Hemoglobin Concent 33.9 % Red Cell Distribution Width 12.8 % Platelet Count 301 TH/MM3 Mean Platelet Volume 8.6 FL Neutrophils (%) (Auto) 64.0 % Lymphocytes (%) (Auto) 21.0 % Monocytes (%) (Auto) 10.2 % Eosinophils (%) (Auto) 3.2 % Basophils (%) (Auto) 1.6 % Neutrophils # (Auto) 4.6 TH/MM3 Lymphocytes # (Auto) 1.5 TH/MM3 Monocytes # (Auto) 0.7 TH/MM3 Eosinophils # (Auto) 0.2 TH/MM3 Basophils # (Auto) 0.1 TH/MM3 CBC Comment DIFF FINAL Differential Comment Urine Color YELLOW Urine Turbidity HAZY Urine pH 8.0 Urine Specific [place] 1.050 Urine Protein TRACE mg/dL Urine Glucose (UA) NEG mg/dL Urine Ketones NEG mg/dL Urine Occult Blood NEG Urine Nitrite NEG Urine Bilirubin NEG Urine Urobilinogen LESS THAN 2.0 MG/DL Urine Leukocyte Esterase NEG Urine RBC LESS THAN 1 /hpf Urine Amorphous Sediment FEW Microscopic Urinalysis Comment CATH-CULT NOT IND Blood Urea Nitrogen 14 MG/DL Creatinine 1.05 MG/DL Random Glucose 100 MG/DL Total Protein 7.6 GM/DL Albumin 3.5 GM/DL Calcium Level 8.4 MG/DL Alkaline Phosphatase 86 U/L Aspartate Amino Transf (AST/SGOT) 13 U/L Alanine Aminotransferase (ALT/SGPT) 10 U/L Total Bilirubin 0.1 MG/DL Sodium Level 139 MEQ/L Potassium Level 4.1 MEQ/L Chloride Level 104 MEQ/L Carbon Dioxide Level 30.6 MEQ/L Anion Gap 4 MEQ/L Estimat Glomerular Filtration Rate 73 ML/MIN Lactic Acid Level 1.4 mmol/L MDM Medical Decision Making Medical Screen Exam Complete: Yes Emergency Medical Condition: Yes Differential Diagnosis post operative complication vs abscess vs diverticulitis vs perforation of viscous post operative Narrative Course CTA accompanies patient and it showed a 6 cm abscess in LLQ , pt given Zofran IV and Zosyn 3.375gr and NS and admitted to Medicine for possible IR or surgical intervention in AM Diagnosis Primary Impression: Postoperative abscess Qualified Codes: T81.4XXA - Infection following a procedure, initial encounter Additional Impression: Intra-abdominal abscess Wild Rod MD Jan 10, 2018 20:45
[2018-01-10 22:16] VITALS: BP 134/90; PULSE 75; RESP 18; O2SAT 97
[2018-01-10] MEDS ORDERED: SODIUM CHLOR 0.9% 1000 ML INJ 1,000 ML IV ONE (22:45)
[2018-01-10] MEDS ORDERED: Vancomycin Consult Pharmacy 1 EA OTHER SCH (22:45)
[2018-01-10] MEDS ORDERED: SODIUM CHLORIDE 0.9% FLUSH 10 ML FLUSH IV FLUSH PRN (22:45)
[2018-01-10] MEDS ORDERED: NALOXONE HCL 0.4 MG/ML AMP IV PUSH PRN (22:45)
[2018-01-10] MEDS: DIVALPROEX SODIUM E.R. 500 MG TAB PO SCH (23:06)
[2018-01-10] MEDS ORDERED: PILL SPLITTER OTHER PRN (23:15)
[2018-01-10] MEDS: SODIUM CHLOR 0.9% 1000 ML INJ 1,000 ML IV SCH (23:22)
[2018-01-10] MEDS ORDERED: SODIUM CHLORID 0.9% IV ONE (23:30)
[2018-01-10] MEDS ORDERED: VANCOMYCIN IV ONE (23:30)
[2018-01-11] VITALS (10 sets, daily range): BP systolic 121–137; BP diastolic 65–88; PULSE 67–100; RESP 16–20; TEMP 98–98.5; O2SAT 92–99
--- NOTE | 2018-01-11 01:28 | HHI.HP ---
[facility] Celia Huertas MD Admission Diagnosis ABDO ABSCESS POST OPERATIVE 12/21 Diagnoses: Travel History International Travel<30 Days: No Contact w/Intl Traveler <30 Da: No Traveled to Known Affected Are: No History of Present Illness 57-year-old male with a past medical history significant for hypertension and bipolar disorder presents to the emergency department with a 1 day history of nausea, fatigue and lower abdominal pain. The patient is status post laparoscopic bilateral inguinal hernia repair on 12/21/17, done by Dr. Gray at [facility]. The patient reports he has left lower quadrant abdominal and left inguinal pain that radiates down his left leg. He endorses associated nausea and fatigue. She denies any fever/chills. Denies chest pain or shortness of breath. Denies nausea/vomiting/diarrhea. Review of Systems Except as stated in HPI: all other systems reviewed are Neg Past Family Social History Past Medical History History of diverticulitis next Hypertension Bipolar disorder Past Surgical History Colostomy with reversal secondary to diverticulitis Left knee replacement Bilateral hernia repair Hemorrhoidectomy Reported Medications Reported Meds & Active Scripts Active Reported Depakote ER (Divalproex Sodium) 500 Mg Hero 500 Mg PO HS Aspirin 81 Mg Chew 81 Mg CHEW DAILY Norvasc (Amlodipine Besylate) 2.5 Mg Tab 2.5 Mg PO DAILY Celexa (Citalopram Hydrobromide) 10 Mg Tab 10 Mg PO DAILY Allergies: Coded Allergies: acetaminophen (Verified Allergy, Severe, Seizures, 12/06/17) propoxyphene (Verified Allergy, Severe, Seizures, 12/06/17) Family History Father with diabetes mellitus Social History Denies tobacco. Occasional alcohol. Denies illicit drugs. Physical Exam Vital Signs Vital Signs Date Time Temp Pulse Resp B/P (MAP) Pulse Ox O2 Delivery O2 Flow Rate FiO2 01/11/18 00:18 98.0 67 20 137/80 (99) 95 01/11/18 00:00 67 01/10/18 22:16 75 18 134/90 (105) 97 Room Air 01/10/18 19:10 75 18 141/67 (91) 97 Room Air 01/10/18 16:40 98.2 88 14 148/73 (98) 95 Physical Exam GENERAL: male sitting up in bed SKIN: No rashes, ecchymoses or lesions. Cool and dry. HEAD: Atraumatic. Normocephalic. No temporal or scalp tenderness. EYES: Pupils equal round and reactive. Extraocular motions intact. No scleral icterus. No injection or drainage. ENT: Nose without bleeding, purulent drainage or septal hematoma. Throat without erythema, tonsillar hypertrophy or exudate. Uvula midline. Airway patent. NECK: Trachea midline. No JVD or lymphadenopathy. Supple, nontender, no meningeal signs. CARDIOVASCULAR: Regular rate and rhythm without murmurs, gallops, or rubs. RESPIRATORY: Clear to auscultation. Breath sounds equal bilaterally. No wheezes , rales, or rhonchi. GASTROINTESTINAL: Abdomen soft, tender to palpation of the left lower quadrant, nondistended. No hepato-splenomegaly, or palpable masses. No guarding. MUSCULOSKELETAL: Extremities without clubbing, cyanosis, or edema. No joint tenderness, effusion, or edema noted. No calf tenderness. NEUROLOGICAL: Awake and alert. Cranial nerves II through XII intact. Motor and sensory grossly within normal limits. Normal speech. Laboratory Laboratory Tests Test 01/10/18 17:50 White Blood Count 7.1 Red Blood Count 4.53 Hemoglobin 14.4 Hematocrit 42.6 Mean Corpuscular Volume 94.0 Mean Corpuscular Hemoglobin 31.9 Mean Corpuscular Hemoglobin Concent 33.9 Red Cell Distribution Width 12.8 Platelet Count 301 Mean Platelet Volume 8.6 Neutrophils (%) (Auto) 64.0 Lymphocytes (%) (Auto) 21.0 Monocytes (%) (Auto) 10.2 Eosinophils (%) (Auto) 3.2 Basophils (%) (Auto) 1.6 Neutrophils # (Auto) 4.6 Lymphocytes # (Auto) 1.5 Monocytes # (Auto) 0.7 Eosinophils # (Auto) 0.2 Basophils # (Auto) 0.1 CBC Comment DIFF FINAL Differential Comment Urine Color YELLOW Urine Turbidity HAZY Urine pH 8.0 Urine Specific Remer 1.050 Urine Protein TRACE Urine Glucose (UA) NEG Urine Ketones NEG Urine Occult Blood NEG Urine Nitrite NEG Urine Bilirubin NEG Urine Urobilinogen LESS THAN 2.0 Urine Leukocyte Esterase NEG Urine RBC LESS THAN 1 Urine Amorphous Sediment FEW Microscopic Urinalysis Comment CATH-CULT NOT IND Blood Urea Nitrogen 14 Creatinine 1.05 Random Glucose 100 Total Protein 7.6 Albumin 3.5 Calcium Level 8.4 Alkaline Phosphatase 86 Aspartate Amino Transf (AST/SGOT) 13 Alanine Aminotransferase (ALT/SGPT) 10 Total Bilirubin 0.1 Sodium Level 139 Potassium Level 4.1 Chloride Level 104 Carbon Dioxide Level 30.6 Anion Gap 4 Estimat Glomerular Filtration Rate 73 Lactic Acid Level 1.4 Date/Time Source Procedure Growth Status 01/10/18 17:50 Blood Peripheral Aerobic Blood Culture Pending Received 01/10/18 17:50 Blood Peripheral Anaerobic Blood Culture Pending Received Result Diagram: 01/10/18 1750 01/10/18 1750 Caprin[place]olis VTE Risk Assessment Rhettrini VTE Risk Assessment: No/Low Risk (score <= 1) Caprini Risk Assessment Model Point Value = 1 Point Value = 2 Point Value = 3 Point Value = 5 Age 41-60 Minor surgery BMI > 25 kg/m2 Swollen legs Varicose veins or History of unexplained or recurrent spontaneous Oral contraceptives or hormone replacement Sepsis (< 1 month) Serious lung disease, including pneumonia (< 1 month) Abnormal pulmonary function Acute myocardial infarction Congestive heart failure (< 1 month) History of inflammatory bowel disease Medical patient at bed rest Age 61-74 Arthroscopic surgery Major open surgery (> 45 min) Laparoscopic surgery (> 45 min) Malignancy Confined to bed (> 72 hours) Immobilizing plaster cast Central venous access Age >= 75 History of VTE Family history of VTE Factor V Leiden Prothrombin [id number] Lupus anticoagulant Anticardiolipin antibodies Elevated serum homocysteine Heparin-induced thrombocytopenia Other congenital or acquired thrombophilia Stroke (< 1 month) Elective arthroplasty Hip, pelvis, or leg fracture Acute spinal cord injury (< 1 month) Prophylaxis Regimen Total Risk Factor Score Risk Level Prophylaxis Regimen 0-1 Low Early ambulation 2 Moderate Order ONE of the following: *Sequential Compression Device (SCD) *Heparin 5000 units SQ BID 3-4 Higher Order ONE of the following medications: *Heparin 5000 units SQ TID *Enoxaparin/Lovenox 40 mg SQ daily (WT < 150 kg, CrCl > 30 mL/min) *Enoxaparin/Lovenox 30 mg SQ daily (WT < 150 kg, CrCl > 10-29 mL/min) *Enoxaparin/Lovenox 30 mg SQ BID (WT < 150 kg, CrCl > 30 mL/min) AND/OR *Sequential Compression Device (SCD) 5 or more Highest Order ONE of the following medications: *Heparin 5000 units SQ TID (Preferred with Epidurals) *Enoxaparin/Lovenox 40 mg SQ daily (WT < 150 kg, CrCl > 30 mL/min) *Enoxaparin/Lovenox 30 mg SQ daily (WT < 150 kg, CrCl > 10-29 mL/min) *Enoxaparin/Lovenox 30 mg SQ BID (WT < 150 kg, CrCl > 30 mL/min) AND *Sequential Compression Device (SCD) Assessment and Plan Assessment and Plan Assessment/plan: 1. Postoperative abscess CT of the abdomen/pelvis significant for abscess identified within the left lower quadrant of the abdomen with adherent small bowel loops Interventional radiology consulted, appreciate evaluation for possible drainage Vancomycin/Zosyn 2. Hypertension Continue home amlodipine 3. Bipolar disorder Continue Depakote and citalopram FEN NPO NS at 125 cc/hr Electrolytes: monitor and replete prn Holding pharmacologic anticoagulation in anticipation of procedure Physician Certification 2 Midnight Certification Type: Admission for Inpatient Services Order for Inpatient Services The services are ordered in accordance with Medicare regulations or non- Medicare payer requirements, as applicable. In the case of services not specified as inpatient-only, they are appropriately provided as inpatient services in accordance with the 2-midnight benchmark. Estimated LOS (days): 2 2 days is the estimated time the patient will need to remain in the hospital, assuming treatment plan goals are met and no additional complications. Post-Hospital Plan: Not yet determined Radha Benoit MD Jan 11, 2018 01:28
[2018-01-11] MEDS: PIPERACIL-TAZO 3.375 GM PREMIX 50 ML IV SCH ×4 (02:00→20:27)
[2018-01-11] MEDS ORDERED: PIPERACIL-TAZO 3.375 GM PREMIX 50 ML IV SCH (03:45)
[2018-01-11 05:25] LABS: AUTOMATED NEUTROPHIL # 4.1 TH/MM3 (1.8-7.7); BASOPHIL % 0.5 % (0.0-2.0); EOSINOPHIL # 0.3 TH/MM3 (0-0.4); EOSINOPHIL % 3.9 % (0.0-4.0); HEMATOCRIT 39.5 % (39.0-51.0); HEMOGLOBIN 13.4 GM/DL (13.0-17.0); LYMPH % 24.6 % (9.0-44.0); LYMPHOCYTE # 1.7 TH/MM3 (1.0-4.8); MEAN CELL VOLUME 93.4 FL (80.0-100.0); MEAN CORPUSCULAR HEMOGLOBIN 31.7 PG (27.0-34.0); MEAN CORPUSCULAR HGB CONC 33.9 % (32.0-36.0); MEAN PLATELET VOLUME 8.8 FL (7.0-11.0); MONO % 10.7 % (0.0-8.0); MONOCYTE # 0.7 TH/MM3 (0-0.9); NEUT % 60.3 % (16.0-70.0); PLATELET COUNT 271 TH/MM3 (150-450); RED BLOOD COUNT 4.23 MIL/MM3 (4.50-5.90); RED CELL DISTRIBUTION WIDTH 12.7 % (11.6-17.2); WHITE BLOOD COUNT 6.8 TH/MM3 (4.0-11.0)
[2018-01-11 05:57] LABS: CALCIUM 7.6 MG/DL (8.5-10.1); CREATININE 0.86 MG/DL (0.60-1.30)
[2018-01-11] MEDS: SODIUM CHLOR 0.9% 1000 ML INJ 1,000 ML IV SCH ×3 (06:45→20:28)
[2018-01-11] MEDS: ONDANSETRON HCL 4 MG/2 ML VIAL IVP PRN (08:06)
[2018-01-11] MEDS: MORPHINE SULFATE 4 MG/ML INJ IV PUSH PRN ×2 (08:07→20:41)
[2018-01-11] MEDS: SODIUM CHLORIDE 0.9% FLUSH 10 ML FLUSH IV FLUSH SCH ×2 (08:08→20:28)
[2018-01-11] MEDS: CITALOPRAM HYDROBROMIDE 20 MG TAB PO SCH (08:08)
[2018-01-11] MEDS: amLODIPine BESYLATE 5 MG TAB PO SCH (08:08)
[2018-01-11] MEDS: VANCOMYCIN INJ 1,500 MG in SODIUM CHLORID 0.9% 500 ML INJ 500 ML IV SCH (14:44)
[2018-01-11] MEDS ORDERED: LIDOCAINE HCL 1% 20 ML VIAL ONE (15:02)
[2018-01-11] MEDS ORDERED: MIDAZOLAM HCL 2 MG/2 ML VIAL ONE (15:23)
[2018-01-11] MEDS ORDERED: fentaNYL CITRATE 250 MCG/5 ML AMP ONE (15:23)
--- NOTE | 2018-01-11 16:21 | PD.RAD ---
Post Procedure Progress Note Pre Procedure Diagnosis: (1) Intra-abdominal abscess Post Procedure Diagnosis: (1) Intra-abdominal abscess Procedure Date: Jan 11, 2018 Supervising Radiologist: Bronson Lopez Estimated blood loss: none Anesthesia: Local, Conscious Sedation Plan of Activity Patient to Unit: ROPU Patient Condition: Good Additional Comments: 18 Ga needle placed into the anterior abdominal collection. 5cc of serous fluid removed and sent for culture. This did not appear grossly infected. No drain placed. Full dictated report to follow See PACS Report for procedural detail/treatment Bronson Lopez MD Jan 11, 2018 16:21
--- NOTE | 2018-01-11 18:17 | HHI.PR ---
Subjective Remarks abdominal pain better. Denies nausea or vomiting. Denies fevers or chills. Objective Vitals Vital Signs Date Time Temp Pulse Resp B/P (MAP) Pulse Ox O2 Delivery O2 Flow Rate FiO2 01/11/18 17:15 78 18 126/78 (94) 99 01/11/18 17:00 78 18 127/81 (96) 93 01/11/18 16:46 70 18 136/84 (101) 94 01/11/18 16:30 98.5 100 18 136/88 (104) 92 01/11/18 08:03 98.1 69 16 127/73 (91) 99 01/11/18 07:30 69 01/11/18 04:00 98.0 72 20 122/73 (89) 96 01/11/18 00:18 98.0 67 20 137/80 (99) 95 01/11/18 00:00 67 01/10/18 22:16 75 18 134/90 (105) 97 Room Air 01/10/18 19:10 75 18 141/67 (91) 97 Room Air I/O 01/10/18 01/10/18 01/10/18 01/11/18 01/11/18 01/11/18 07:00 15:00 23:00 07:00 15:00 23:00 Intake Total 50 ml 1000 ml 1050 ml Output Total 600 ml 800 ml Balance 50 ml 400 ml 250 ml Intake IV Total 50 ml 1000 ml 1050 ml Output Urine Total 600 ml 800 ml # Bowel Movements 0 Result Diagram: 01/11/18 0434 01/11/18 0434 Objective Remarks GENERAL: male sitting up in bed SKIN: No rashes, ecchymoses or lesions. Cool and dry. HEAD: Atraumatic. Normocephalic. No temporal or scalp tenderness. EYES: Pupils equal round and reactive. Extraocular motions intact. No scleral icterus. No injection or drainage. ENT: Nose without bleeding, purulent drainage or septal hematoma. Throat without erythema, tonsillar hypertrophy or exudate. Uvula midline. Airway patent. NECK: Trachea midline. No JVD or lymphadenopathy. Supple, nontender, no meningeal signs. CARDIOVASCULAR: Regular rate and rhythm without murmurs, gallops, or rubs. RESPIRATORY: Clear to auscultation. Breath sounds equal bilaterally. No wheezes , rales, or rhonchi. GASTROINTESTINAL: Abdomen soft, tender to palpation of the left lower quadrant, nondistended. No hepato-splenomegaly, or palpable masses. No guarding. MUSCULOSKELETAL: Extremities without clubbing, cyanosis, or edema. No joint tenderness, effusion, or edema noted. No calf tenderness. NEUROLOGICAL: Awake and alert. Cranial nerves II through XII intact. Motor and sensory grossly within normal limits. Normal speech. Medications and IVs Current Medications Medications (Trade) Dose Ordered Sig/Simi Route Start Time Stop Time Status Last Admin (Morphine Inj) 2 mg Q3H PRN IV PUSH 01/10/18 19:45 01/11/18 20:41 Sodium Chloride 1,000 ml @ 125 mls/hr Q8H IV 01/10/18 22:45 01/11/18 08:16 (NS Flush) 2 ml UNSCH PRN IV FLUSH 01/10/18 22:45 (NS Flush) 2 ml BID IV FLUSH 01/11/18 09:00 01/11/18 08:08 (Zofran Inj) 4 mg Q6H PRN IVP 01/10/18 22:45 01/11/18 08:06 (Narcan Inj) 0.4 mg UNSCH PRN IV PUSH 01/10/18 22:45 Pharmacy Profile Note 0 ml @ 0 mls/hr UNSCH OTHER 01/10/18 22:45 Piperacillin Sod/ Tazobactam Sod 50 ml @ 100 mls/hr Q6H IV 01/11/18 02:00 01/11/18 20:27 (Norvasc) 2.5 mg DAILY PO 01/11/18 09:00 01/11/18 08:08 (CeleXA) 10 mg DAILY PO 01/11/18 09:00 01/11/18 08:08 (Depakote Er) 500 mg HS PO 01/10/18 23:00 01/11/18 20:27 (Pill Splitter) 1 ea UNSCH PRN OTHER 01/10/18 23:15 Vancomycin HCl 1500 mg/Sodium Chloride 515 ml @ 250 mls/hr Q12H IV 01/11/18 14:00 01/11/18 14:44 Miscellaneous Information SPECIFIC LAB TO BE DRAWN:VANCOMC... ONCE ONCE .XX 01/13/18 01:45 01/13/18 01:46 A/P Problem List: (1) Intraabdominal fluid collection ICD Code: R18.8 - Other ascites Status: Acute Plan: SP CT guided drainage by IR. doubt abscess since patient is afebrile and has normal wbc count. Wound culture pending Continue empiric IV Zosyn and Vancomycin. Consult general surgery. (2) Hypertension ICD Code: I10 - Essential (primary) hypertension Plan: bp stable. Continue amlodipine. (3) Bipolar disorder ICD Code: F31.9 - Bipolar disorder, unspecified Plan: Continue Depakote and Citalopram. Seems to be stable. Assessment and Plan Assessment/plan: 1. Postoperative abscess CT of the abdomen/pelvis significant for abscess identified within the left lower quadrant of the abdomen with adherent small bowel loops Interventional radiology consulted, appreciate evaluation for possible drainage Vancomycin/Zosyn 2. Hypertension Continue home amlodipine 3. Bipolar disorder Continue Depakote and citalopram FEN NPO NS at 125 cc/hr Electrolytes: monitor and replete prn Holding pharmacologic anticoagulation in anticipation of procedure Problem Qualifiers (1) Hypertension: Qualified Codes: I10 - Essential (primary) hypertension (2) Bipolar disorder: Qualified Codes: F31.9 - Bipolar disorder, unspecified Jaspreet Rueda MD Jan 11, 2018 18:17
[2018-01-11] MEDS: DIVALPROEX SODIUM E.R. 500 MG TAB PO SCH (20:27)
[2018-01-12] VITALS (9 sets, daily range): BP systolic 110–130; BP diastolic 55–78; PULSE 64–89; RESP 17–20; TEMP 96–99.3; O2SAT 96–100
[2018-01-12] MEDS: VANCOMYCIN INJ 1,500 MG in SODIUM CHLORID 0.9% 500 ML INJ 500 ML IV SCH (02:44)
[2018-01-12] MEDS: PIPERACIL-TAZO 3.375 GM PREMIX 50 ML IV SCH ×2 (02:45→09:28)
[2018-01-12] MEDS: MORPHINE SULFATE 4 MG/ML INJ IV PUSH PRN (04:26)
[2018-01-12 04:40] LABS: AUTOMATED NEUTROPHIL # 3.2 TH/MM3 (1.8-7.7); BASOPHIL # 0.1 TH/MM3 (0-0.2); EOSINOPHIL # 0.3 TH/MM3 (0-0.4); EOSINOPHIL % 4.7 % (0.0-4.0); HEMOGLOBIN 13.2 GM/DL (13.0-17.0); LYMPH % 25.6 % (9.0-44.0); LYMPHOCYTE # 1.4 TH/MM3 (1.0-4.8); MEAN CELL VOLUME 93.5 FL (80.0-100.0); MEAN CORPUSCULAR HEMOGLOBIN 32.4 PG (27.0-34.0); MEAN CORPUSCULAR HGB CONC 34.6 % (32.0-36.0); MEAN PLATELET VOLUME 8.7 FL (7.0-11.0); MONO % 12.7 % (0.0-8.0); MONOCYTE # 0.7 TH/MM3 (0-0.9); PLATELET COUNT 264 TH/MM3 (150-450); RED BLOOD COUNT 4.07 MIL/MM3 (4.50-5.90); RED CELL DISTRIBUTION WIDTH 12.7 % (11.6-17.2); WHITE BLOOD COUNT 5.6 TH/MM3 (4.0-11.0)
[2018-01-12 05:01] LABS: BICARBONATE 28.2 MEQ/L (21.0-32.0); CALCIUM 7.7 MG/DL (8.5-10.1); CREATININE 0.93 MG/DL (0.60-1.30)
[2018-01-12] MEDS: SODIUM CHLOR 0.9% 1000 ML INJ 1,000 ML IV SCH (06:54)
--- NOTE | 2018-01-12 08:12 | RADRPT ---
EXAM DATE/TIME: 01/11/2018 15:56 [place] COMPARISON: CT ABDOMEN & PELVIS W CONTRAST, December 23, 2017, 22:04. INDICATIONS : Left abdominal fluid SEDATION TIME: 30 minutes MEDICATION(S): 1.) 4 mg midazolam (Versed) IV 2.) 250 mcg fentanyl (Sublimaze) DEVICE(S): 1.) 18 gauge Donovan blunt needle Total volume of 4 cc of clear, red fluid was removed. Fluid was sent for laboratory ordered studies. MEDICAL HISTORY : Hypertension. Cardiovascular disease. SURGICAL HISTORY : Inguinal hernia repair. Colon resection. ENCOUNTER: Initial ACUITY: 1 day PAIN SCORE: 0/10 LOCATION: Left Abdomen PROCEDURE: 1.) Conscious sedation with continuous EKG and oximetry monitoring. PROCEDURE : CT guided aspiration of a small fluid collection in the anterior abdominal cavity. The risks, benefits and alternatives to the procedure were explained and verbal and written consent w as obtained. Using automated exposure control and adjustment of the mA and/or kV according to patien t size, radiation dose was kept as low as reasonably achievable to obtain optimal diagnostic quality images. The site was prepped in sterile fashion. Full sterile technique was used, including cap, ma sk, sterile gloves and gown and a large sterile sheet. Hand hygiene and 2% chlorhexidine and/or beta dine/alcohol prep was utilized per protocol for cutaneous antisepsis. The skin and subcutaneous tiss ues were infiltrated with local anesthetic solution. DICOM format image data is available electronic ally for review and comparison. The fluid collection in the left midabdomen was identified. The skin above the was anesthetized with lidocaine. A Donovan blunt needle was advanced down into the cavity without difficulty. Only approxim ately 2-3 cc of serous fluid returned. A second site within the cavity was selected. This was easily accessed as well. Again, only approximately 2-3 cc of serous appearing fluid returned. The fluid was sent to path all deeper branch vein culture and sensitivity. CONCLUSION: The fluid collection in the left upper abdomen was easily accessed however only serous fluid returned . This did not appear grossly infected. This sample was sent to pathology for Gram stain culture and sensitivity. Bronson Lopez MD on January 12, 2018 at 8:08 Board Certified Radiologist. This report was verified electronically.
[2018-01-12] MEDS: CITALOPRAM HYDROBROMIDE 20 MG TAB PO SCH (09:28)
[2018-01-12] MEDS: amLODIPine BESYLATE 5 MG TAB PO SCH (09:28)
[2018-01-12] MEDS: SODIUM CHLORIDE 0.9% FLUSH 10 ML FLUSH IV FLUSH SCH ×2 (09:29→19:28)
--- NOTE | 2018-01-12 13:07 | HHI.PR ---
Subjective Remarks c/o pain on left lower quadrant radiating down to the upper left thigh and left inguinal canal. Patient also states that he is having diarrhea. Denies fevers or chills. Denies chest pain or shortness of breath. Objective Vitals Vital Signs Date Time Temp Pulse Resp B/P (MAP) Pulse Ox O2 Delivery O2 Flow Rate FiO2 01/12/18 12:00 97.5 80 17 110/55 (73) 96 01/12/18 08:00 96.0 89 17 121/76 (91) 99 01/12/18 08:00 96.7 64 17 118/78 (91) 97 01/12/18 04:33 98.7 70 18 117/60 (79) 98 01/12/18 04:05 78 01/12/18 00:00 84 01/12/18 00:00 99.3 85 20 125/75 (92) 96 01/11/18 20:00 83 01/11/18 20:00 98.2 85 18 121/65 (83) 97 01/11/18 17:15 78 18 126/78 (94) 99 01/11/18 17:00 78 18 127/81 (96) 93 01/11/18 16:46 70 18 136/84 (101) 94 01/11/18 16:30 98.5 100 18 136/88 (104) 92 I/O 01/11/18 01/11/18 01/11/18 01/12/18 01/12/18 01/12/18 06:59 14:59 22:59 06:59 14:59 22:59 Intake Total 1000 ml 1050 ml 500 ml 1430 ml Output Total 600 ml 800 ml 200 ml 350 ml Balance 400 ml 250 ml 300 ml 1080 ml Intake Oral 0 ml 680 ml IV Total 1000 ml 1050 ml 500 ml 750 ml Output Urine Total 600 ml 800 ml 200 ml 350 ml # Voids 1 2 # Bowel Movements 0 0 Result Diagram: 01/12/18 0310 01/12/18 0310 Imaging Last Impressions Needle Aspiration CT 01/11/18 1400 Signed Impressions: Service Date/Time: December 15:56 - CONCLUSION: The fluid collection in the left upper abdomen was easily accessed however only serous fluid returned. This did not appear grossly infected. This sample was sent to pathology for Gram stain culture and sensitivity. Bronson Lopez MD Objective Remarks GENERAL: male sitting up in bed SKIN: No rashes, ecchymoses or lesions. Cool and dry. HEAD: Atraumatic. Normocephalic. No temporal or scalp tenderness. EYES: Pupils equal round and reactive. Extraocular motions intact. No scleral icterus. No injection or drainage. ENT: Nose without bleeding, purulent drainage or septal hematoma. Throat without erythema, tonsillar hypertrophy or exudate. Uvula midline. Airway patent. NECK: Trachea midline. No JVD or lymphadenopathy. Supple, nontender, no meningeal signs. CARDIOVASCULAR: Regular rate and rhythm without murmurs, gallops, or rubs. RESPIRATORY: Clear to auscultation. Breath sounds equal bilaterally. No wheezes , rales, or rhonchi. GASTROINTESTINAL: Abdomen soft, tender to palpation of the left lower quadrant, nondistended. No hepato-splenomegaly, or palpable masses. No guarding. MUSCULOSKELETAL: Extremities without clubbing, cyanosis, or edema. No joint tenderness, effusion, or edema noted. No calf tenderness. NEUROLOGICAL: Awake and alert. Cranial nerves II through XII intact. Motor and sensory grossly within normal limits. Normal speech. Medications and IVs Current Medications Medications (Trade) Dose Ordered Sig/Simi Route Start Time Stop Time Status Last Admin (Morphine Inj) 2 mg Q3H PRN IV PUSH 01/10/18 19:45 01/12/18 04:26 (NS Flush) 2 ml UNSCH PRN IV FLUSH 01/10/18 22:45 (NS Flush) 2 ml BID IV FLUSH 01/11/18 09:00 01/12/18 09:29 (Zofran Inj) 4 mg Q6H PRN IVP 01/10/18 22:45 01/11/18 08:06 (Narcan Inj) 0.4 mg UNSCH PRN IV PUSH 01/10/18 22:45 Pharmacy Profile Note 0 ml @ 0 mls/hr UNSCH OTHER 01/10/18 22:45 Piperacillin Sod/ Tazobactam Sod 50 ml @ 100 mls/hr Q6H IV 01/11/18 02:00 Future Hold 01/12/18 09:28 (Norvasc) 2.5 mg DAILY PO 01/11/18 09:00 01/12/18 09:28 (CeleXA) 10 mg DAILY PO 01/11/18 09:00 01/12/18 09:28 (Depakote Er) 500 mg HS PO 01/10/18 23:00 01/11/18 20:27 (Pill Splitter) 1 ea UNSCH PRN OTHER 01/10/18 23:15 Vancomycin HCl 1500 mg/Sodium Chloride 515 ml @ 250 mls/hr Q12H IV 01/11/18 14:00 Future Hold 01/12/18 02:44 Miscellaneous Information SPECIFIC LAB TO BE DRAWN:VANCOMC... ONCE ONCE .XX 01/13/18 01:45 01/13/18 01:46 (Lactinex) 1 tab Q12HR PO 01/12/18 11:00 A/P Problem List: (1) Intraabdominal fluid collection ICD Code: R18.8 - Other ascites Status: Acute Plan: SP CT guided drainage by IR. doubt abscess since patient is afebrile and has normal wbc count. Wound culture pending Continue empiric IV Zosyn and Vancomycin. Consult general surgery. 01/12 ALT IV antibiotics since there is no signs of infection. No fevers, no leukocytosis and aspect of fluid was serous. General surgery consulted. Awaiting recommendations. Discontinue IV fluids. (2) Hypertension ICD Code: I10 - Essential (primary) hypertension Plan: bp stable. Continue amlodipine. (3) Bipolar disorder ICD Code: F31.9 - Bipolar disorder, unspecified Plan: Continue Depakote and Citalopram. Seems to be stable. (4) Diarrhea ICD Code: R19.7 - Diarrhea, unspecified Plan: Check C. difficile toxin PCR, DC IV antibiotics. Start on Lactobacillus acidophilus. Assessment and Plan DVT prophylaxis: SCDs. Discharge Planning Discharge pending surgical consultation. Wound culture results. Problem Qualifiers (1) Hypertension: Qualified Codes: I10 - Essential (primary) hypertension (2) Bipolar disorder: Qualified Codes: F31.9 - Bipolar disorder, unspecified (3) Diarrhea: Qualified Codes: R19.7 - Diarrhea, unspecified Jaspreet Rueda MD Jan 12, 2018 13:07
[2018-01-12] MEDS: LACTOBACILLUS ACIDOPHILUS TAB PO SCH ×2 (14:29→19:28)
--- NOTE | 2018-01-12 15:20 | PD.CONS ---
cc: Ayo Morales MD [facility] Service General Surgery Consult Requested By Dr. Casillas Reason for Consult Abdominal pain; patient s/p laparoscopic bilateral inguinal hernia repair with mesh Primary Care Physician Celia Huertas MD History of Present Illness This is a 57 year old male with a past medical history of hypertension, bipolar and diverticulitis. He had an elective bilateral laparoscopic inguinal hernia repair by Dr. Ramos at [facility] on December 21. He had no immediate post operative complications and was discharged home. He had been to one follow up appointment and did report to Dr. Ramos that he had increased LEFT scrotal pain and LEFT thigh pain. Per patient, no other imaging was obtained. On Monday, the patient went to [facility] due to increased pain. A CT was obtained that showed a fluid collection in the LEFT pelvis and there was a concern for abscess formation. The patient was given instruction to come to the Emergency Department. He was started on IV antibiotics. A CT guided drainage of the fluid collection was completed. Per report, the fluid was serous and clear. It was sent for cultures. Currently, the patient has complaints similar to after surgery at his follow up appointment with Dr. Ramos. He has pain in his LEFT scrotum and LEFT thigh. The patient is able to tolerate a regular diet. He does have diarrhea. A General Surgery consultation has been requested. Review of Systems Constitutional: DENIES: Fatigue, Change in appetite Endocrine: DENIES: Polydipsia, Polyuria, Polyphagia Eyes: DENIES: Diplopia, Eye inflammation Ears, nose, mouth, throat: DENIES: Hearing loss Respiratory: DENIES: Apneas, Cough Cardiovascular: DENIES: Chest pain Gastrointestinal: COMPLAINS OF: Abdominal pain, Diarrhea, DENIES: Nausea, Vomiting Genitourinary: DENIES: Urinary incontinence, Dysuria Musculoskeletal: DENIES: Joint pain Integumentary: DENIES: Abnormal pigmentation Hematologic/lymphatic: DENIES: Bruising Immunologic/allergic: DENIES: Eczema Neurologic: DENIES: Abnormal gait, Headache Psychiatric: DENIES: Confusion, Mood changes, Depression Past Family Social History Past Medical History Hypertension Bipolar Diverticulitis Past Surgical History Sigmoid resection with colostomy ---and reversal ---done in 2006 in [place] LEFT knee repair Bilateral inguinal hernia repair---Dr. Ramos (Dec 21, 2017) Hemicolectomy Reported Medications Norvasc Aspirin Depakote Celexa Allergies: Coded Allergies: acetaminophen (Verified Allergy, Severe, Seizures, 12/06/17) propoxyphene (Verified Allergy, Severe, Seizures, 12/06/17) Active Ordered Medications Current Medications Medications (Trade) Dose Ordered Sig/Simi Route Start Time Stop Time Status Last Admin (Morphine Inj) 2 mg Q3H PRN IV PUSH 01/10/18 19:45 01/12/18 04:26 (NS Flush) 2 ml UNSCH PRN IV FLUSH 01/10/18 22:45 (NS Flush) 2 ml BID IV FLUSH 01/11/18 09:00 01/12/18 09:29 (Zofran Inj) 4 mg Q6H PRN IVP 01/10/18 22:45 01/11/18 08:06 (Narcan Inj) 0.4 mg UNSCH PRN IV PUSH 01/10/18 22:45 Pharmacy Profile Note 0 ml @ 0 mls/hr UNSCH OTHER 01/10/18 22:45 Piperacillin Sod/ Tazobactam Sod 50 ml @ 100 mls/hr Q6H IV 01/11/18 02:00 Future Hold 01/12/18 09:28 (Norvasc) 2.5 mg DAILY PO 01/11/18 09:00 01/12/18 09:28 (CeleXA) 10 mg DAILY PO 01/11/18 09:00 01/12/18 09:28 (Depakote Er) 500 mg HS PO 01/10/18 23:00 01/11/18 20:27 (Pill Splitter) 1 ea UNSCH PRN OTHER 01/10/18 23:15 Vancomycin HCl 1500 mg/Sodium Chloride 515 ml @ 250 mls/hr Q12H IV 01/11/18 14:00 Future Hold 01/12/18 02:44 Miscellaneous Information SPECIFIC LAB TO BE DRAWN:VANCOMC... ONCE ONCE .XX 01/13/18 01:45 01/13/18 01:46 (Lactinex) 1 tab Q12HR PO 01/12/18 11:00 01/12/18 14:29 Family History Noncontributory Social History Denies tobacco use Denies ETOH use Denies illicit drug use Patient reports he is homeless. Physical Exam Vital Signs Vital Signs Date Time Temp Pulse Resp B/P (MAP) Pulse Ox O2 Delivery O2 Flow Rate FiO2 01/12/18 12:00 97.5 80 17 110/55 (73) 96 01/12/18 08:45 87 01/12/18 08:00 96.0 89 17 121/76 (91) 99 01/12/18 08:00 96.7 64 17 118/78 (91) 97 01/12/18 04:33 98.7 70 18 117/60 (79) 98 01/12/18 04:05 78 01/12/18 00:00 84 01/12/18 00:00 99.3 85 20 125/75 (92) 96 01/11/18 20:00 83 01/11/18 20:00 98.2 85 18 121/65 (83) 97 01/11/18 17:15 78 18 126/78 (94) 99 01/11/18 17:00 78 18 127/81 (96) 93 01/11/18 16:46 70 18 136/84 (101) 94 01/11/18 16:30 98.5 100 18 136/88 (104) 92 Physical Exam GENERAL: Anxious 57 year old male resting in bed. SKIN: Warm and dry. HEAD: Atraumatic. Normocephalic. EYES: Pupils equal and round. No scleral icterus. No injection or drainage. ENT: No nasal bleeding or discharge. Mucous membranes pink and moist. NECK: Trachea midline. CARDIOVASCULAR: Regular rate and rhythm. RESPIRATORY: No accessory muscle use. Clear to auscultation. Breath sounds equal bilaterally. GASTROINTESTINAL: Abdomen soft, nondistended. Laparoscopic scars healing. LLQ tenderness with palpation. Transverse incision and prior colostomy site incision well healed. MUSCULOSKELETAL: Extremities without clubbing, cyanosis, or edema. No obvious deformities. Large well healed incision on LEFT knee. NEUROLOGICAL: Awake and alert. No obvious cranial nerve deficits. Motor grossly within normal limits. Five out of 5 muscle strength in the arms and legs. Normal speech. PSYCHIATRIC: Appropriate mood and affect; insight and judgment normal. Laboratory Laboratory Tests Test 01/12/18 03:10 White Blood Count 5.6 Red Blood Count 4.07 Hemoglobin 13.2 Hematocrit 38.0 Mean Corpuscular Volume 93.5 Mean Corpuscular Hemoglobin 32.4 Mean Corpuscular Hemoglobin Concent 34.6 Red Cell Distribution Width 12.7 Platelet Count 264 Mean Platelet Volume 8.7 Neutrophils (%) (Auto) 56.0 Lymphocytes (%) (Auto) 25.6 Monocytes (%) (Auto) 12.7 Eosinophils (%) (Auto) 4.7 Basophils (%) (Auto) 1.0 Neutrophils # (Auto) 3.2 Lymphocytes # (Auto) 1.4 Monocytes # (Auto) 0.7 Eosinophils # (Auto) 0.3 Basophils # (Auto) 0.1 CBC Comment DIFF FINAL Differential Comment Blood Urea Nitrogen 12 Creatinine 0.93 Random Glucose 92 Calcium Level 7.7 Sodium Level 141 Potassium Level 3.8 Chloride Level 107 Carbon Dioxide Level 28.2 Anion Gap 6 Estimat Glomerular Filtration Rate 84 Date/Time Source Procedure Growth Status 01/10/18 17:50 Blood Peripheral Aerobic Blood Culture - Preliminary NO GROWTH IN 2 DAYS Resulted 01/10/18 17:50 Blood Peripheral Anaerobic Blood Culture - Preliminary NO GROWTH IN 2 DAYS Resulted 01/11/18 16:15 Wound Abdomen Fungal Smear - Final NO FUNGAL ELEMENTS SEEN. Resulted 01/11/18 16:15 Wound Abdomen Fungal Culture Pending Resulted Result Diagram: 01/12/18 0310 01/12/18 0310 Assessment and Plan Assessment and Plan 57 year old male s/p laparoscopic bilateral inguinal hernia repair by Dr. Ramos on 12/21; with continued pain -Tolerating regular diet -s/p seroma drainage -No signs of obstruction, incarceration or infection -Wound recommend follow up as an outpatient with his General Surgeon ---Dr. Ramos -General Surgery will sign off Attending Note - Dr. Andrew Emerson examined; no hernia defects Postop neuropraxia, no acute issues As above; follow up with patient's surgeon The exam, history, and the medical decision-making described in the above note were completed with the assistance of the mid-level provider. I reviewed and agree with the findings presented. I attest that I had a [id number] encounter with the patient on the same day, and personally performed and documented my assessment and findings in the medical record. Discussed Condition With Julia Lester RN/First Joyce ELLSWORTH Jan 12, 2018 15:20 Ayo Morales MD Jan 16, 2018 11:38
[2018-01-12] MEDS: DIVALPROEX SODIUM E.R. 500 MG TAB PO SCH (19:28)
[2018-01-12] MEDS: metroNIDAZOLE 500 MG TAB PO SCH (22:29)
[2018-01-13] VITALS (7 sets, daily range): BP systolic 119–134; BP diastolic 59–74; PULSE 70–87; RESP 18–20; TEMP 97.3–98.5; O2SAT 95–98
[2018-01-13] MEDS ORDERED: PHARMACY ORDERED LAB ONE (01:45)
[2018-01-13] MEDS: metroNIDAZOLE 500 MG TAB PO SCH (04:13)
[2018-01-13] MEDS: LACTOBACILLUS ACIDOPHILUS TAB PO SCH ×2 (08:24→21:03)
[2018-01-13] MEDS: CITALOPRAM HYDROBROMIDE 20 MG TAB PO SCH (08:25)
[2018-01-13] MEDS: MORPHINE SULFATE 4 MG/ML INJ IV PUSH PRN ×2 (08:25→14:12)
[2018-01-13] MEDS: amLODIPine BESYLATE 5 MG TAB PO SCH (08:25)
[2018-01-13] MEDS: ONDANSETRON HCL 4 MG/2 ML VIAL IVP PRN ×2 (08:25→17:45)
[2018-01-13] MEDS: SODIUM CHLORIDE 0.9% FLUSH 10 ML FLUSH IV FLUSH SCH ×2 (08:26→21:00)
[2018-01-13 09:15] LABS: CREATININE 0.83 MG/DL (0.60-1.30)
--- NOTE | 2018-01-13 12:19 | HHI.PR ---
Subjective Remarks No major overnight events. Objective Vitals Vital Signs Date Time Temp Pulse Resp B/P (MAP) Pulse Ox O2 Delivery O2 Flow Rate FiO2 01/13/18 08:00 97.8 70 19 133/70 (91) 96 01/13/18 04:22 98.2 79 18 119/59 (79) 98 01/13/18 03:45 70 01/13/18 00:17 97.6 78 20 131/63 (85) 96 01/12/18 20:30 85 01/12/18 20:00 99.0 82 18 130/74 (92) 98 01/12/18 16:00 98.0 77 17 115/62 (79) 100 I/O 01/12/18 01/12/18 01/12/18 01/13/18 01/13/18 01/13/18 07:00 15:00 23:00 07:00 15:00 23:00 Intake Total 1430 ml 1800 ml 780 ml 240 ml Output Total 350 ml 725 ml Balance 1080 ml 1075 ml 780 ml 240 ml Intake Oral 680 ml 1800 ml 780 ml 240 ml IV Total 750 ml Output Urine Total 350 ml 725 ml # Voids 2 3 # Bowel Movements 4 2 Result Diagram: 01/12/18 0310 01/13/18 0749 Imaging Last Impressions Needle Aspiration CT 01/11/18 1400 Signed Impressions: Service Date/Time: December 15:56 - CONCLUSION: The fluid collection in the left upper abdomen was easily accessed however only serous fluid returned. This did not appear grossly infected. This sample was sent to pathology for Gram stain culture and sensitivity. Bronson Lopez MD Objective Remarks GENERAL: male sitting up in bed SKIN: No rashes, ecchymoses or lesions. Cool and dry. HEAD: Atraumatic. Normocephalic. No temporal or scalp tenderness. EYES: Pupils equal round and reactive. Extraocular motions intact. No scleral icterus. No injection or drainage. ENT: Nose without bleeding, purulent drainage or septal hematoma. Throat without erythema, tonsillar hypertrophy or exudate. Uvula midline. Airway patent. NECK: Trachea midline. No JVD or lymphadenopathy. Supple, nontender, no meningeal signs. CARDIOVASCULAR: Regular rate and rhythm without murmurs, gallops, or rubs. RESPIRATORY: Clear to auscultation. Breath sounds equal bilaterally. No wheezes , rales, or rhonchi. GASTROINTESTINAL: Abdomen soft, tender to palpation of the left lower quadrant, nondistended. No hepato-splenomegaly, or palpable masses. No guarding. MUSCULOSKELETAL: Extremities without clubbing, cyanosis, or edema. No joint tenderness, effusion, or edema noted. No calf tenderness. NEUROLOGICAL: Awake and alert. Cranial nerves II through XII intact. Motor and sensory grossly within normal limits. Normal speech. Procedures None Medications and IVs Current Medications Medications (Trade) Dose Ordered Sig/Simi Route Start Time Stop Time Status Last Admin (Morphine Inj) 2 mg Q3H PRN IV PUSH 01/10/18 19:45 01/13/18 08:25 (NS Flush) 2 ml UNSCH PRN IV FLUSH 01/10/18 22:45 (NS Flush) 2 ml BID IV FLUSH 01/11/18 09:00 01/13/18 08:26 (Zofran Inj) 4 mg Q6H PRN IVP 01/10/18 22:45 01/13/18 08:25 (Narcan Inj) 0.4 mg UNSCH PRN IV PUSH 01/10/18 22:45 Piperacillin Sod/ Tazobactam Sod 50 ml @ 100 mls/hr Q6H IV 01/11/18 02:00 Future Hold 01/12/18 09:28 (Norvasc) 2.5 mg DAILY PO 01/11/18 09:00 01/13/18 08:25 (CeleXA) 10 mg DAILY PO 01/11/18 09:00 01/13/18 08:25 (Depakote Er) 500 mg HS PO 01/10/18 23:00 01/12/18 19:28 (Pill Splitter) 1 ea UNSCH PRN OTHER 01/10/18 23:15 (Lactinex) 1 tab Q12HR PO 01/12/18 11:00 01/13/18 08:24 (Flagyl) 500 mg Q8HR PO 01/12/18 22:15 01/13/18 04:13 Urinary Catheter: No Vascular Central Line Catheter: No A/P Problem List: (1) Intraabdominal fluid collection ICD Code: R18.8 - Other ascites Status: Acute Plan: SP CT guided drainage by IR. doubt abscess since patient is afebrile and has normal wbc count. Wound culture pending Continue empiric IV Zosyn and Vancomycin. Consult general surgery. 01/12 discontinue IV antibiotics since there is no signs of infection. No fevers , no leukocytosis and aspect of fluid was serous. General surgery consulted. Awaiting recommendations. Discontinue IV fluids. 01/[address] Morales. The patient can be discharged from the general surgery standpoint. Patient advised and recommended by Dr. Morales to follow-up with his surgeon that did the hernia repair. (2) Hypertension ICD Code: I10 - Essential (primary) hypertension Plan: bp stable. Continue amlodipine. (3) Bipolar disorder ICD Code: F31.9 - Bipolar disorder, unspecified Plan: Continue Depakote and Citalopram. Seems to be stable. (4) Diarrhea ICD Code: R19.7 - Diarrhea, unspecified Plan: Check C. difficile toxin PCR, DC IV antibiotics. Start on Lactobacillus acidophilus. (5) C. difficile diarrhea ICD Code: A04.72 - Enterocolitis due to Clostridium difficile, not specified as recurrent Plan: Positive C. difficile toxin PCR. Continue Lactobacillus acidophilus. Assessment and Plan DVT prophylaxis: SCDs. Discharge Planning Discharge pending surgical consultation. Wound culture results. Problem Qualifiers (1) Hypertension: Qualified Codes: I10 - Essential (primary) hypertension (2) Bipolar disorder: Qualified Codes: F31.9 - Bipolar disorder, unspecified (3) Diarrhea: Qualified Codes: R19.7 - Diarrhea, unspecified Jaspreet Rueda MD Jan 13, 2018 12:18
[2018-01-13] MEDS ORDERED: VANCOMYCIN 500 MG VIAL (FOR ORAL USE ONLY) PO SCH (13:00)
[2018-01-13] MEDS: VANCOMYCIN 25 MG/ML SUSP 100 ML BOTTLE PO SCH ×3 (14:15→21:03)
[2018-01-13] MEDS: SODIUM CHLOR 0.9% 1000 ML INJ 1,000 ML IV SCH (16:12)
[2018-01-13] MEDS: KETOROLAC TROMETHAMINE 10 MG TAB PO PRN ×2 (17:44→23:57)
[2018-01-13] MEDS: DIVALPROEX SODIUM E.R. 500 MG TAB PO SCH (21:03)
[2018-01-14 00:22] VITALS: BP 120/71; PULSE 66; RESP 16; TEMP 98.1; O2SAT 94
[2018-01-14] MEDS: SODIUM CHLOR 0.9% 1000 ML INJ 1,000 ML IV SCH ×2 (03:51→16:18)
[2018-01-14 04:00] VITALS: BP 130/81; PULSE 68; PULSE 71; RESP 16; TEMP 98.3; O2SAT 96
[2018-01-14] MEDS: SODIUM CHLORIDE 0.9% FLUSH 10 ML FLUSH IV FLUSH SCH ×2 (07:01→20:13)
[2018-01-14 07:38] LABS: CREATININE 0.85 MG/DL (0.60-1.30)
[2018-01-14 08:00] VITALS: BP 127/74; PULSE 97; RESP 19; TEMP 97.7; O2SAT 96
[2018-01-14] MEDS: amLODIPine BESYLATE 5 MG TAB PO SCH (08:54)
[2018-01-14] MEDS: LACTOBACILLUS ACIDOPHILUS TAB PO SCH ×2 (08:54→20:12)
[2018-01-14] MEDS: CITALOPRAM HYDROBROMIDE 20 MG TAB PO SCH (08:54)
[2018-01-14] MEDS: VANCOMYCIN 25 MG/ML SUSP 100 ML BOTTLE PO SCH ×4 (08:55→20:13)
[2018-01-14 12:00] VITALS: BP 122/69; PULSE 91; RESP 19; TEMP 97; O2SAT 95
--- NOTE | 2018-01-14 12:39 | HHI.PR ---
Subjective Remarks Patient states that stool is formed and diarrhea has resolved. Denies abdominal pain, nausea vomiting. Complains of left testicular pain. Objective Vitals Vital Signs Date Time Temp Pulse Resp B/P (MAP) Pulse Ox O2 Delivery O2 Flow Rate FiO2 01/14/18 08:00 97.7 97 19 127/74 (91) 96 01/14/18 04:00 98.3 71 16 130/81 (97) 96 01/14/18 04:00 68 01/14/18 00:57 20 01/14/18 00:22 98.1 66 16 120/71 (87) 94 01/13/18 20:55 98.5 80 18 134/74 (94) 95 01/13/18 16:00 97.3 73 19 123/73 (90) 96 I/O 01/13/18 01/13/18 01/13/18 01/14/18 01/14/18 01/14/18 07:00 15:00 23:00 07:00 15:00 23:00 Intake Total 780 ml 240 ml 960 ml 1240 ml 120 ml Output Total 960 ml 1100 ml Balance 780 ml 240 ml 0 ml 140 ml 120 ml Intake Oral 780 ml 240 ml 960 ml 240 ml 120 ml IV Total 1000 ml Output Urine Total 960 ml 1100 ml # Voids 3 # Bowel Movements 2 Result Diagram: 01/12/18 0310 01/14/18 0610 Imaging Last Impressions Needle Aspiration CT 01/11/18 1400 Signed Impressions: Service Date/Time: December 15:56 - CONCLUSION: The fluid collection in the left upper abdomen was easily accessed however only serous fluid returned. This did not appear grossly infected. This sample was sent to pathology for Gram stain culture and sensitivity. Bronson Lopez MD Objective Remarks GENERAL: male sitting up in bed SKIN: No rashes, ecchymoses or lesions. Cool and dry. HEAD: Atraumatic. Normocephalic. No temporal or scalp tenderness. EYES: Pupils equal round and reactive. Extraocular motions intact. No scleral icterus. No injection or drainage. ENT: Nose without bleeding, purulent drainage or septal hematoma. Throat without erythema, tonsillar hypertrophy or exudate. Uvula midline. Airway patent. NECK: Trachea midline. No JVD or lymphadenopathy. Supple, nontender, no meningeal signs. CARDIOVASCULAR: Regular rate and rhythm without murmurs, gallops, or rubs. RESPIRATORY: Clear to auscultation. Breath sounds equal bilaterally. No wheezes , rales, or rhonchi. GASTROINTESTINAL: Abdomen soft, tender to palpation of the left lower quadrant, nondistended. No hepato-splenomegaly, or palpable masses. No guarding. MUSCULOSKELETAL: Extremities without clubbing, cyanosis, or edema. No joint tenderness, effusion, or edema noted. No calf tenderness. NEUROLOGICAL: Awake and alert. Cranial nerves II through XII intact. Motor and sensory grossly within normal limits. Normal speech. Procedures None Medications and IVs Current Medications Medications (Trade) Dose Ordered Sig/Simi Route Start Time Stop Time Status Last Admin (NS Flush) 2 ml UNSCH PRN IV FLUSH 01/10/18 22:45 (NS Flush) 2 ml BID IV FLUSH 01/11/18 09:00 01/13/18 08:26 (Zofran Inj) 4 mg Q6H PRN IVP 01/10/18 22:45 01/13/18 17:45 (Narcan Inj) 0.4 mg UNSCH PRN IV PUSH 01/10/18 22:45 (Norvasc) 2.5 mg DAILY PO 01/11/18 09:00 01/14/18 08:54 (CeleXA) 10 mg DAILY PO 01/11/18 09:00 01/14/18 08:54 (Depakote Er) 500 mg HS PO 01/10/18 23:00 01/13/18 21:03 (Pill Splitter) 1 ea UNSCH PRN OTHER 01/10/18 23:15 (Lactinex) 1 tab Q12HR PO 01/12/18 11:00 01/14/18 08:54 (Vancomycin 25 Mg/ml Liq) 125 mg QID PO 01/13/18 14:00 01/14/18 08:55 Sodium Chloride 1,000 ml @ 84 mls/hr [id number] IV 01/13/18 16:00 01/14/18 03:51 (Toradol) 10 mg Q6H PRN PO 01/13/18 15:30 01/18/18 15:29 01/13/18 23:57 A/P Problem List: (1) Intraabdominal fluid collection ICD Code: R18.8 - Other ascites Status: Acute Plan: SP CT guided drainage by IR. doubt abscess since patient is afebrile and has normal wbc count. Wound culture pending Continue empiric IV Zosyn and Vancomycin. Consult general surgery. 01/12 discontinue IV antibiotics since there is no signs of infection. No fevers , no leukocytosis and aspect of fluid was serous. General surgery consulted. Awaiting recommendations. Discontinue IV fluids. 01/[address] Morales. The patient can be discharged from the general surgery standpoint. Patient advised and recommended by Dr. Morales to follow-up with his surgeon that did the hernia repair. (2) Hypertension ICD Code: I10 - Essential (primary) hypertension Plan: bp stable. Continue amlodipine. (3) Bipolar disorder ICD Code: F31.9 - Bipolar disorder, unspecified Plan: Continue Depakote and Citalopram. Seems to be stable. (4) Diarrhea ICD Code: R19.7 - Diarrhea, unspecified Plan: Check C. difficile toxin PCR, DC IV antibiotics. Start on Lactobacillus acidophilus. (5) C. difficile diarrhea ICD Code: A04.72 - Enterocolitis due to Clostridium difficile, not specified as recurrent Plan: Positive C. difficile toxin PCR. Continue Lactobacillus acidophilus. 01/14 Patient started on oral Flagyl the night of 01/12, however this was switched to oral vancomycin on 01/13. Diarrhea has resolved, the patient will need to get oral vancomycin to complete a total of 14 days. Assessment and Plan DVT prophylaxis: SCDs. Discharge Planning Dc pending placement. Problem Qualifiers (1) Hypertension: Qualified Codes: I10 - Essential (primary) hypertension (2) Bipolar disorder: Qualified Codes: F31.9 - Bipolar disorder, unspecified (3) Diarrhea: Qualified Codes: R19.7 - Diarrhea, unspecified Jaspreet Rueda MD Jan 14, 2018 12:39
[2018-01-14 16:00] VITALS: BP 157/73; PULSE 62; RESP 19; TEMP 97.8; O2SAT 95
--- NOTE | 2018-01-14 18:10 | RADRPT ---
EXAM DATE/TIME: 01/14/2018 16:57 [facility] COMPARISON: No previous studies available for comparison. INDICATIONS : Left groin pain. MEDICAL HISTORY : Hypertension. Thyroid disease. PTSD. Bipolar disorder. Anxiety. Previos suicide attempt. Blood trans fusion. Diverticulitis. SURGICAL HISTORY : Colon resection. Inguinal hernia repair.Left knee replacement. ENCOUNTER: Initial ACUITY: 1 day PAIN SCORE: 1/10 LOCATION: Bilateral scrotum. MEASUREMENTS: RIGHT TESTICLE: 3.0 x 2.8 x 1.7 cm LEFT TESTICLE: 3.3 x 2.5 x 1.7cm FINDINGS: RIGHT TESTICLE: Homogeneous echotexture without intra or extratesticular mass. Blood flow is symmetric and within no rmal limits. No hydrocele or varicocele. Epididymis is within normal limits. LEFT TESTICLE: Homogeneous echotexture without intra or extratesticular mass. Blood flow is symmetric and within no rmal limits. No hydrocele or varicocele. Epididymis is within normal limits. SCROTUM: Within normal limits. CONCLUSION: 1. Examination within normal limits for age. Guy Villar MD on January 14, 2018 at 17:55 Board Certified Radiologist. This report was verified electronically.
[2018-01-14 20:00] VITALS: BP 121/79; PULSE 76; RESP 18; TEMP 97.9; O2SAT 96
[2018-01-14] MEDS: DIVALPROEX SODIUM E.R. 500 MG TAB PO SCH (20:12)
[2018-01-14] MEDS: KETOROLAC TROMETHAMINE 10 MG TAB PO PRN (20:13)
[2018-01-15] VITALS: BP 128/75; PULSE 75; RESP 18; TEMP 97.7; O2SAT 96
[2018-01-15] MEDS: SODIUM CHLOR 0.9% 1000 ML INJ 1,000 ML IV SCH ×2 (03:45→13:47)
[2018-01-15 04:59] VITALS: PULSE 69
[2018-01-15 08:00] VITALS: BP 131/71; PULSE 68; RESP 19; TEMP 97.4; O2SAT 97
[2018-01-15 08:54] LABS: CREATININE 0.78 MG/DL (0.60-1.30)
[2018-01-15] MEDS: VANCOMYCIN 25 MG/ML SUSP 100 ML BOTTLE PO SCH ×2 (09:47→13:46)
[2018-01-15] MEDS: LACTOBACILLUS ACIDOPHILUS TAB PO SCH (09:47)
[2018-01-15] MEDS: amLODIPine BESYLATE 5 MG TAB PO SCH (09:47)
[2018-01-15] MEDS: CITALOPRAM HYDROBROMIDE 20 MG TAB PO SCH (09:47)
[2018-01-15] MEDS: SODIUM CHLORIDE 0.9% FLUSH 10 ML FLUSH IV FLUSH SCH (09:48)
[2018-01-15] MEDS: ONDANSETRON HCL 4 MG/2 ML VIAL IVP PRN (11:29)
[2018-01-15 12:00] VITALS: BP 120/68; PULSE 81; RESP 20; TEMP 96.4; O2SAT 98
[2018-01-15] MEDS ORDERED: NORV2.5T PO (12:00)
[2018-01-15] MEDS ORDERED: VANC500I3 PO (12:00)
[2018-01-15] MEDS ORDERED: LACT PO (12:00)
[2018-01-15] MEDS ORDERED: CELE10TA PO (12:00)
[2018-01-15] MEDS ORDERED: DEPA500T3 PO (12:00)
--- NOTE | 2018-01-15 14:48 | HHI.DCPOC ---
Discharge Care Plan Diagnosis: (1) Intraabdominal fluid collection (2) C. difficile diarrhea (3) Bipolar 1 disorder (4) Hypertension Goals to Promote Your Health * To prevent worsening of your condition and complications * To maintain your health at the optimal level Directions to Meet Your Goals Take your medications as prescribed Follow your dietary instruction Follow activity as directed Keep your appointments as scheduled Take your immunizations and boosters as scheduled If your symptoms worsen call your PCP, if no PCP go to Urgent Care Center or Emergency Room Smoking is Dangerous to Your Health. Avoid second hand smoke Call the 24-hour hour crisis hotline for domestic abuse at Jaspreet Rueda MD Jan 15, 2018 14:48
--- NOTE | 2018-01-15 14:58 | HHI.DS ---
Discharge Summary Admission Date Jan 10, 2018 at 22:16 Discharge Date: Jan 15, 2018 Admitting Diagnosis ABDO ABSCESS POST OPERATIVE 12/21 (1) Intraabdominal fluid collection ICD Code: R18.8 - Other ascites Diagnosis: Principal Status: Resolved (2) Hypertension ICD Code: I10 - Essential (primary) hypertension Diagnosis: Principal Status: Chronic (3) Bipolar disorder ICD Code: F31.9 - Bipolar disorder, unspecified Diagnosis: Principal Status: Chronic (4) Diarrhea ICD Code: R19.7 - Diarrhea, unspecified Diagnosis: Principal Status: Resolved (5) C. difficile diarrhea ICD Code: A04.72 - Enterocolitis due to Clostridium difficile, not specified as recurrent Diagnosis: Principal Status: Acute Procedures None Brief History - From Admission 57-year-old male with a past medical history significant for hypertension and bipolar disorder presents to the emergency department with a 1 day history of nausea, fatigue and lower abdominal pain. The patient is status post laparoscopic bilateral inguinal hernia repair on 12/21/17, done by Dr. Gray at [facility]. The patient reports he has left lower quadrant abdominal and left inguinal pain that radiates down his left leg. He endorses associated nausea and fatigue. She denies any fever/chills. Denies chest pain or shortness of breath. Denies nausea/vomiting/diarrhea. CBC/BMP: 01/12/18 0310 01/15/18 0700 Significant Findings Laboratory Tests Test 01/12/18 20:05 01/13/18 07:49 01/14/18 06:10 01/15/18 07:00 Stool C. difficile Toxin (PCR) POSITIVE (NEGATIVE) Imaging Last Impressions Scrotum Ultrasound 01/14/18 0000 Signed Impressions: Service Date/Time: Sunday, January 14, 2018 16:57 - CONCLUSION: 1. Examination within normal limits for age. Guy Villar MD Needle Aspiration CT 01/11/18 1400 Signed Impressions: Service Date/Time: December 15:56 - CONCLUSION: The fluid collection in the left upper abdomen was easily accessed however only serous fluid returned. This did not appear grossly infected. This sample was sent to pathology for Gram stain culture and sensitivity. Bronson Lopez MD PE at Discharge GENERAL: male sitting up in bed SKIN: No rashes, ecchymoses or lesions. Cool and dry. HEAD: Atraumatic. Normocephalic. No temporal or scalp tenderness. EYES: Pupils equal round and reactive. Extraocular motions intact. No scleral icterus. No injection or drainage. ENT: Nose without bleeding, purulent drainage or septal hematoma. Throat without erythema, tonsillar hypertrophy or exudate. Uvula midline. Airway patent. NECK: Trachea midline. No JVD or lymphadenopathy. Supple, nontender, no meningeal signs. CARDIOVASCULAR: Regular rate and rhythm without murmurs, gallops, or rubs. RESPIRATORY: Clear to auscultation. Breath sounds equal bilaterally. No wheezes , rales, or rhonchi. GASTROINTESTINAL: Abdomen soft, tender to palpation of the left lower quadrant, nondistended. No hepato-splenomegaly, or palpable masses. No guarding. MUSCULOSKELETAL: Extremities without clubbing, cyanosis, or edema. No joint tenderness, effusion, or edema noted. No calf tenderness. NEUROLOGICAL: Awake and alert. Cranial nerves II through XII intact. Motor and sensory grossly within normal limits. Normal speech. Pt update on day of discharge The patient denies chest pain or shortness of breath. Patient is afebrile. She complains of some left testicular pain however testicular ultrasound was normal. States diarrhea has resolved. Hospital Course (1) Intraabdominal fluid collection SP CT guided drainage by IR. doubt abscess since patient is afebrile and has normal wbc count. Wound culture negative in 72 hours. Initially treated empirically with IV Zosyn and IV vancomycin. General surgery was consulted.. The patient to be discharged. Recommended for the patient to follow-up with the surgeon who performed the left inguinal hernia repair. IV antibiotics were discontinued since fluid was clear and patient did not present any other signs of infection. (2) Hypertension BP monitor, remained stable on amlodipine. (3) Bipolar disorder Continue Depakote and Citalopram. Seems to be stable. (4) Diarrhea Due to C. difficile toxin diarrhea see below. (5) C. difficile diarrhea Positive C. difficile toxin PCR. Patient started on Lactobacillus acidophilus. Patient started on oral Flagyl the night of 01/12, however this was switched to oral vancomycin on 01/13. Diarrhea has resolved, the patient will need to get oral vancomycin to complete a total of 14 days. DVT prophylaxis: SCDs. Pt Condition on Discharge: Stable Discharge Disposition: Discharge Home Discharge Time: > 30 minutes Discharge Instructions DIET: Follow Instructions for: As Tolerated, No Restrictions Activities you can perform: Regular-No Restrictions Follow up Referrals: PCP Follow-up - 2 Weeks Surgical - 2 Weeks with Florian Ramos MD New Medications: Lactobacillus Acidophilus (Acidophilus/l-Sporogenes) 35 Million Cell-25 Million Cell Tab 1 TAB PO Q12HR for Infection, #20 TAB Vancomycin Inj (Vancomycin Inj) 500 Mg Inj 125 MG PO QID for Infection, #40 CAP Continued Medications: Amlodipine (Norvasc) 2.5 Mg Tab 2.5 MG PO DAILY for Blood Pressure Management, #30 TAB 0 Refills (This prescription has been renewed) Aspirin (Aspirin) 81 Mg Chew 81 MG CHEW DAILY, TAB 0 Refills Citalopram (Celexa) 10 Mg Tab 10 MG PO DAILY for Control Depression, #30 TAB 0 Refills (This prescription has been renewed) Divalproex ER (Depakote ER) 500 Mg Hero 500 MG PO HS for Control Seizures, #30 TAB 0 Refills (This prescription has been renewed) Jaspreet Rueda MD Jan 15, 2018 14:58
== END 2018-01-15 16:03 | disposition home or self-care (01) | DRG 948 ==
LOC: NEPE 16:39 → NEDA 22:16 → NEDH 01-11 02:16 → N07A 01-11 13:34
PROVIDERS: ADMIT Hospitalist; ATTEND Hospitalist
PROC: 0W9G3ZX Drainage of Peritoneal Cavity, Percutaneous Approach, Diagnostic (ICD-10-PCS; principal; 2018-01-11)
DX: R18.8 Other ascites (principal); A04.72 Enterocolitis due to Clostridium difficile, not specified as recurrent; I10 Essential (primary) hypertension; F31.9 Bipolar disorder, unspecified; Z96.652 Presence of left artificial knee joint; N50.82 Scrotal pain; M79.652 Pain in left thigh; N50.812 Left testicular pain; F41.9 Anxiety disorder, unspecified; F43.10 Post-traumatic stress disorder, unspecified; Z59.0 Homelessness
CPT/HCPCS: 10160; 76870; 77012; 80048; 80053; 81001; 82565; 83605; 85025; 87040; 87070; 87102; 87205; 87206; 87493; 93975; 96365; 96375; 99152; 99153; C1769; J2250; J2270; J2405; J2543; J3010; J3370; J7030; J7040

== ENCOUNTER 2018-02-06 21:28 | Emergency (ER) | payer MEDICARE, MEDICAID ==
[~2018-02-06] VITALS: Ht 175.3 cm; Wt 85.0 kg
[~2018-02-06 21:28] MED LIST changes: -ASPI81CH6 CHEW; +LACT PO; -MELO7.5T27 PO; +VANC500I3 PO
[2018-02-06 22:06] VITALS: BP 133/80; PULSE 79; RESP 16; TEMP 98.4; O2SAT 97
[2018-02-07 07:41] VITALS: BP 123/65; PULSE 66; RESP 16; O2SAT 98
--- NOTE | 2018-02-07 07:56 | PD ---
HPI Chief Complaint: Abdominal Pain Time Seen by Provider: 07:40 Travel History International Travel<30 days: No Contact w/Intl Traveler<30days: No Traveled to known affect area: No History of Present Illness HPI Patient is a 57-year-old male who at the beginning of December had a bilateral hernia repair at outside facility. Patient postoperative period was complicated by an intra-abdominal abscess which was drained by interventional radiology here and he spent several days in the hospital. Patient states the last night he was listening to 5 gallon jug ice at work and felt something pop in his left lower quadrant. Now he has pain radiating down into his groin as well as his left lower extremity. Denies any back pain denies any saddle anesthesia. He has not taken anything for pain prior to arrival. Denies any dysuria denies any nausea vomiting diarrhea constipation. He states the pain is moderate. He is concerned that his hernias recurred PFSH Past Medical History Bipolar Disorder: Yes Anxiety: Yes Heart Rhythm Problems: No Cardiac Catheterization: No Cardiovascular Problems: Yes (HTN) High Cholesterol: No Congestive Heart Failure: No Diabetes: No Diminished Hearing: No Glaucoma: Yes Heparin Induced Thrombocytopen: No Hypertension: Yes Inguinal Hernia: Yes Psychiatric: Yes (bipolar, PTSD, anxiety) Immunizations Current: Yes Thyroid Disease: Yes ("HYPOTHYRODISM") Past Surgical History Abdominal Surgery: Yes (HERNIA RX, COLON RESECTION) Coronary Artery Bypass Graft: No Social History Alcohol Use: Yes (MODERATE) Tobacco Use: No Substance Use: No Allergies-Medications (Allergen,Severity, Reaction): Coded Allergies: acetaminophen (Verified Allergy, Severe, Seizures, 02/07/18) propoxyphene (Verified Allergy, Severe, Seizures, 02/07/18) Reported Meds & Prescriptions Reported Meds & Active Scripts Active Clindamycin (Clindamycin HCl) 150 Mg Cap 300 Mg PO Q6H 10 Days Acidophilus/l-Sporogenes (Lactobacillus Acidophilus) 35 Million Cell-25 Million Cell Tab 1 Tab PO Q12HR Depakote ER (Divalproex Sodium) 500 Mg Hero 500 Mg PO HS Norvasc (Amlodipine Besylate) 2.5 Mg Tab 2.5 Mg PO DAILY Celexa (Citalopram Hydrobromide) 10 Mg Tab 10 Mg PO DAILY Reported Aspirin 81 Mg Chew 81 Mg CHEW DAILY Review of Systems Except as stated in HPI: all other systems reviewed are Neg Physical Exam Narrative GENERAL: Well-developed well-nourished no obvious distress, happy and joking. SKIN: Focused skin assessment warm/dry. HEAD: Atraumatic. Normocephalic. EYES: Pupils equal and round. No scleral icterus. No injection or drainage. ENT: No nasal bleeding or discharge. Mucous membranes pink and moist. NECK: Trachea midline. No JVD. CARDIOVASCULAR: Regular rate and rhythm. No murmur appreciated. RESPIRATORY: No accessory muscle use. Clear to auscultation. Breath sounds equal bilaterally. GASTROINTESTINAL: Abdomen soft, non-tender, nondistended. Hepatic and splenic margins not palpable. Healing surgical wounds, I feel no hernia on the abdomen or the inguinal region, there is a small lymph node in the left inguinal region. GENITOURINARY: Declined by patient. MUSCULOSKELETAL: No obvious deformities. No clubbing. No cyanosis. No edema. NEUROLOGICAL: Awake and alert. No obvious cranial nerve deficits. Motor grossly within normal limits. Normal speech. PSYCHIATRIC: Appropriate mood and affect; insight and judgment normal. Data Data Last Documented VS Vital Signs Date Time Temp Pulse Resp B/P (MAP) Pulse Ox O2 Delivery O2 Flow Rate FiO2 02/07/18 10:35 17 02/07/18 10:19 02/07/18 08:16 99 Room Air 02/07/18 07:41 66 02/06/18 22:06 98.4 Orders Orders Basic Metabolic Panel (Bmp) (02/07/18 07:51) Complete Blood Count With Diff (02/07/18 07:51) Urinalysis - C+S If Indicated (02/07/18 07:51) Iv Access Insert/Monitor (02/07/18 07:51) Ecg Monitoring (02/07/18 07:51) Oximetry (02/07/18 07:51) Sodium Chloride 0.9% Flush (Ns Flush) (02/07/18 08:00) Gc And Chlamydia Pcr (02/07/18 07:51) Ibuprofen (Motrin) (02/07/18 09:30) Ed Discharge Order (02/07/18 10:22) Labs Laboratory Tests Test 02/07/18 08:01 02/07/18 09:15 White Blood Count 5.4 TH/MM3 Red Blood Count 4.67 MIL/MM3 Hemoglobin 14.8 GM/DL Hematocrit 43.3 % Mean Corpuscular Volume 92.8 FL Mean Corpuscular Hemoglobin 31.7 PG Mean Corpuscular Hemoglobin Concent 34.2 % Red Cell Distribution Width 13.1 % Platelet Count 268 TH/MM3 Mean Platelet Volume 9.3 FL Neutrophils (%) (Auto) 57.3 % Lymphocytes (%) (Auto) 26.0 % Monocytes (%) (Auto) 12.1 % Eosinophils (%) (Auto) 4.0 % Basophils (%) (Auto) 0.6 % Neutrophils # (Auto) 3.1 TH/MM3 Lymphocytes # (Auto) 1.4 TH/MM3 Monocytes # (Auto) 0.7 TH/MM3 Eosinophils # (Auto) 0.2 TH/MM3 Basophils # (Auto) 0.0 TH/MM3 CBC Comment DIFF FINAL Differential Comment Urine Color YELLOW Urine Turbidity CLEAR Urine pH 6.5 Urine Specific [place] 1.023 Urine Protein TRACE mg/dL Urine Glucose (UA) NEG mg/dL Urine Ketones NEG mg/dL Urine Occult Blood NEG Urine Nitrite NEG Urine Bilirubin NEG Urine Urobilinogen LESS THAN 2.0 MG/DL Urine Leukocyte Esterase NEG Urine RBC 1 /hpf Urine WBC 1 /hpf Urine Bacteria RARE /hpf Urine Hyaline Casts 1 /lpf Urine Mucus MANY /lpf Microscopic Urinalysis Comment CULT NOT INDICATED Chlamydia trachomatis DNA (PCR) NOT DETECTED Neisseria gonorrhoeae DNA (PCR) NOT DETECTED Blood Urea Nitrogen 14 MG/DL Creatinine 0.82 MG/DL Random Glucose 87 MG/DL Calcium Level 8.4 MG/DL Sodium Level 140 MEQ/L Potassium Level 4.0 MEQ/L Chloride Level 105 MEQ/L Carbon Dioxide Level 26.4 MEQ/L Anion Gap 9 MEQ/L Estimat Glomerular Filtration Rate 97 ML/MIN [facility] Medical Decision Making Medical Screen Exam Complete: Yes Emergency Medical Condition: Yes Differential Diagnosis Recurrent hernia, inguinal lymphadenopathy, UTI, acute abdomen highly unlikely, entrapped hernia highly unlikely. Narrative Course Patient room to the emergency department, sleeping soundly on my reassessment, his abdomen was benign other than a left inguinal lymph node. His UA was negative. Will be placed on empiric clindamycin and discussed with the patient that he needs to follow-up with the [facility] to ensure resolution of the lymph node or may need further workup. There is no indication for CT scanning of the patient at the time and fact risk of radiation exposure likely outweigh any diagnostic benefit his pretest probability is quite low. He is stable for discharge. Diagnosis Primary Impression: Inguinal lymphadenopathy Referrals: [facility] Additional Instructions: Take your antibiotics as prescribed, follow up with the [facility] or your primary care physician within a week. Return to the emergency department any time you should have concerns that she might have a medical emergency Med/Other Pt SpecificInfo: Prescription(s) given Scripts Clindamycin (Clindamycin) 150 Mg Cap 300 MG PO Q6H for Infection for 10 Days, #80 CAP 0 Refills Prov: Ismael Brown MD 02/07/18 Disposition: DISCHARGE HOME Condition: Stable Ismael Brown MD Feb 07, 2018 07:56
[2018-02-07] MEDS ORDERED: SODIUM CHLORIDE 0.9% FLUSH 10 ML FLUSH IV FLUSH PRN (08:00)
[2018-02-07 08:16] VITALS: O2SAT 99
[2018-02-07 08:27] LABS: AUTOMATED NEUTROPHIL # 3.1 TH/MM3 (1.8-7.7); BASOPHIL % 0.6 % (0.0-2.0); EOSINOPHIL # 0.2 TH/MM3 (0-0.4); HEMATOCRIT 43.3 % (39.0-51.0); HEMOGLOBIN 14.8 GM/DL (13.0-17.0); LYMPHOCYTE # 1.4 TH/MM3 (1.0-4.8); MEAN CELL VOLUME 92.8 FL (80.0-100.0); MEAN CORPUSCULAR HEMOGLOBIN 31.7 PG (27.0-34.0); MEAN CORPUSCULAR HGB CONC 34.2 % (32.0-36.0); MEAN PLATELET VOLUME 9.3 FL (7.0-11.0); MONO % 12.1 % (0.0-8.0); MONOCYTE # 0.7 TH/MM3 (0-0.9); NEUT % 57.3 % (16.0-70.0); PLATELET COUNT 268 TH/MM3 (150-450); RED BLOOD COUNT 4.67 MIL/MM3 (4.50-5.90); RED CELL DISTRIBUTION WIDTH 13.1 % (11.6-17.2); WHITE BLOOD COUNT 5.4 TH/MM3 (4.0-11.0)
[2018-02-07 08:30] LABS: BACTERIA, URINE RARE /hpf; BILIRUBIN, URINE NEG (NEG); BLOOD, URINE NEG (NEG); GLUCOSE,URINE NEG (NEG); HYALINE CAST, URINE 1 /lpf (RARE); KETONE, URINE NEG (NEG); MUCUS URINE MANY /lpf (OCC); NITRITE,URINE NEG (NEG); PH, URINE 6.5 (5.0-8.5); URINE COLOR YELLOW (YELLW/STRAW); URINE LEUKOCYTE ESTERASE NEG (NEG)
[2018-02-07] MEDS ORDERED: IBUPROFEN 600 MG TAB PO ONE (09:30)
[2018-02-07 09:47] LABS: BICARBONATE 26.4 MEQ/L (21.0-32.0); CALCIUM 8.4 MG/DL (8.5-10.1); CREATININE 0.82 MG/DL (0.60-1.30)
[2018-02-07] MEDS ORDERED: CLIN150C14 PO (10:19)
[2018-02-07 10:35] VITALS: RESP 17
== END 2018-02-07 10:30 | disposition home or self-care (01) ==
LOC: NEPC 21:28
DX: R59.0 Localized enlarged lymph nodes (principal); I10 Essential (primary) hypertension
CPT/HCPCS: 80048; 81001; 85025; 87491; 87591; 99283

== ENCOUNTER 2018-02-08 19:42 | Emergency (ER) | payer MEDICARE, MEDICAID ==
[~2018-02-08] VITALS: Ht 175.3 cm; Wt 85.0 kg
[~2018-02-08 19:42] MED LIST changes: +CLIN150C14 PO; -VANC500I3 PO
[2018-02-08 20:04] VITALS: BP 139/83; PULSE 109; RESP 18; TEMP 98.5; O2SAT 100
[2018-02-08] MEDS ORDERED: SODIUM CHLORIDE 0.9% FLUSH 10 ML FLUSH IV FLUSH PRN (20:45)
[2018-02-08] MEDS ORDERED: ONDANSETRON HCL 4 MG/2 ML VIAL IVP ONE (20:45)
[2018-02-08] MEDS ORDERED: MORPHINE SULFATE 4 MG/ML INJ IV PUSH ONE (20:45)
[2018-02-08 21:23] LABS: AUTOMATED NEUTROPHIL # 3.9 TH/MM3 (1.8-7.7); BASOPHIL % 0.5 % (0.0-2.0); EOSINOPHIL # 0.1 TH/MM3 (0-0.4); EOSINOPHIL % 2.2 % (0.0-4.0); HEMATOCRIT 40.6 % (39.0-51.0); HEMOGLOBIN 13.8 GM/DL (13.0-17.0); LYMPH % 24.3 % (9.0-44.0); LYMPHOCYTE # 1.6 TH/MM3 (1.0-4.8); MEAN CORPUSCULAR HEMOGLOBIN 31.6 PG (27.0-34.0); MEAN CORPUSCULAR HGB CONC 33.9 % (32.0-36.0); MEAN PLATELET VOLUME 9.6 FL (7.0-11.0); MONO % 12.6 % (0.0-8.0); MONOCYTE # 0.8 TH/MM3 (0-0.9); NEUT % 60.4 % (16.0-70.0); PLATELET COUNT 231 TH/MM3 (150-450); RED BLOOD COUNT 4.36 MIL/MM3 (4.50-5.90); RED CELL DISTRIBUTION WIDTH 12.9 % (11.6-17.2); WHITE BLOOD COUNT 6.5 TH/MM3 (4.0-11.0)
--- NOTE | 2018-02-08 21:30 | PD ---
HPI . Left lower quadrant lump Chief Complaint: GI Complaint Time Seen by Provider: 20:14 Travel History International Travel<30 days: No Contact w/Intl Traveler<30days: No Traveled to known affect area: No History of Present Illness HPI Patient presents complaining with a lump in the left lower quadrant. Onset has been several days. The lump in the pain associated with the lump is exacerbated by standing. He rates his discomfort as 6/10. He states that he has developed diarrhea similar to diarrhea that he had before associated with C. difficile. This patient's medical history is significant for bilateral herniorrhaphy done in December which was complicated by an intra-abdominal fluid collection. The fluid collection was tapped by IR but only had serous fluid and cultures were negative. The patient reports that the lump in the left lower quadrant is similar to the lump that he had associated with the postoperative fluid collection. The patient reports that he was seen here last night and was diagnosed with a left inguinal lymph node. He spoke with his primary care physician today. The patient states that his primary care physician is surprised that he did not have any imaging studies done yesterday such as an ultrasound or a CT. He comes back tonight requesting imaging. PFSH Past Medical History Bipolar Disorder: Yes Anxiety: Yes Heart Rhythm Problems: No Cardiac Catheterization: No Cardiovascular Problems: Yes (HTN) High Cholesterol: No Congestive Heart Failure: No Diabetes: No Diminished Hearing: No Glaucoma: Yes Heparin Induced Thrombocytopen: No Hypertension: Yes Inguinal Hernia: Yes Psychiatric: Yes (bipolar, PTSD, anxiety) Immunizations Current: Yes Thyroid Disease: Yes ("HYPOTHYRODISM") Past Surgical History Abdominal Surgery: Yes (HERNIA RX, COLON RESECTION) Coronary Artery Bypass Graft: No Social History Alcohol Use: Yes (MODERATE) Tobacco Use: Yes Substance Use: No Allergies-Medications (Allergen,Severity, Reaction): Coded Allergies: acetaminophen (Verified Allergy, Severe, Seizures, 02/08/18) propoxyphene (Verified Allergy, Severe, Seizures, 02/08/18) Reported Meds & Prescriptions Reported Meds & Active Scripts Active Clindamycin (Clindamycin HCl) 150 Mg Cap 300 Mg PO Q6H 10 Days Acidophilus/l-Sporogenes (Lactobacillus Acidophilus) 35 Million Cell-25 Million Cell Tab 1 Tab PO Q12HR Depakote ER (Divalproex Sodium) 500 Mg Hero 500 Mg PO HS Norvasc (Amlodipine Besylate) 2.5 Mg Tab 2.5 Mg PO DAILY Celexa (Citalopram Hydrobromide) 10 Mg Tab 10 Mg PO DAILY Reported Aspirin 81 Mg Chew 81 Mg CHEW DAILY Review of Systems Except as stated in HPI: all other systems reviewed are Neg General / Constitutional: No: Fever, Chills Gastrointestinal: Positive: Diarrhea, Abdominal Pain, No: Nausea, Vomiting Physical Exam Narrative GENERAL: Patient is awake and alert and does not appear to be in any distress. SKIN: warm/dry. HEAD: Normocephalic. Atraumatic. EYES: Pupils equal and round. No scleral icterus. No injection or drainage. ENT: No nasal bleeding or discharge. Mucous membranes pink and moist. NECK: Trachea midline. Full range of motion without pain.. CARDIOVASCULAR: Regular rate and rhythm. RESPIRATORY: No accessory muscle use. Clear to auscultation. Breath sounds equal bilaterally. GASTROINTESTINAL: Abdomen soft. Several surgical scars. There is a healed colostomy scar in the left lower quadrant. There is some indurated tissue associated with this scar. The indurated tissue is more palpable when the patient stands. This is the area of his pain and tenderness. Bowel sounds present. Nondistended. MUSCULOSKELETAL: No obvious deformities. NEUROLOGICAL: Awake and alert. No obvious cranial nerve deficits. Motor grossly within normal limits. Normal speech. PSYCHIATRIC: Appropriate mood and affect; insight and judgment normal. Data Data Last Documented VS Vital Signs Date Time Temp Pulse Resp B/P (MAP) Pulse Ox O2 Delivery O2 Flow Rate FiO2 02/08/18 20:04 98.5 109 18 139/83 (101) 100 Orders Orders Complete Blood Count With Diff (02/08/18 20:44) Comprehensive Metabolic Panel (02/08/18 20:44) Lactic Acid (02/08/18 20:44) Ct Abd/Pel W Iv Contrast(Rout) (02/08/18 20:44) Iv Access Insert/Monitor (02/08/18 20:44) Morphine Inj (Morphine Inj) (02/08/18 20:45) Ondansetron Inj (Zofran Inj) (02/08/18 20:45) Sodium Chloride 0.9% Flush (Ns Flush) (02/08/18 20:45) C Diff Toxin Pcr (02/08/18 20:44) Iohexol 350 Inj (Omnipaque 350 Inj) (02/08/18 21:40) Labs Laboratory Tests Test 02/08/18 21:00 White Blood Count 6.5 TH/MM3 Red Blood Count 4.36 MIL/MM3 Hemoglobin 13.8 GM/DL Hematocrit 40.6 % Mean Corpuscular Volume 93.0 FL Mean Corpuscular Hemoglobin 31.6 PG Mean Corpuscular Hemoglobin Concent 33.9 % Red Cell Distribution Width 12.9 % Platelet Count 231 TH/MM3 Mean Platelet Volume 9.6 FL Neutrophils (%) (Auto) 60.4 % Lymphocytes (%) (Auto) 24.3 % Monocytes (%) (Auto) 12.6 % Eosinophils (%) (Auto) 2.2 % Basophils (%) (Auto) 0.5 % Neutrophils # (Auto) 3.9 TH/MM3 Lymphocytes # (Auto) 1.6 TH/MM3 Monocytes # (Auto) 0.8 TH/MM3 Eosinophils # (Auto) 0.1 TH/MM3 Basophils # (Auto) 0.0 TH/MM3 CBC Comment DIFF FINAL Differential Comment Blood Urea Nitrogen 25 MG/DL Creatinine 1.02 MG/DL Random Glucose 83 MG/DL Total Protein 7.4 GM/DL Albumin 3.5 GM/DL Calcium Level 8.9 MG/DL Alkaline Phosphatase 70 U/L Aspartate Amino Transf (AST/SGOT) 22 U/L Alanine Aminotransferase (ALT/SGPT) 17 U/L Total Bilirubin 0.2 MG/DL Sodium Level 139 MEQ/L Potassium Level 3.8 MEQ/L Chloride Level 103 MEQ/L Carbon Dioxide Level 28.2 MEQ/L Anion Gap 8 MEQ/L Estimat Glomerular Filtration Rate 75 ML/MIN Lactic Acid Level 1.0 mmol/L [facility] Medical Decision Making Medical Screen Exam Complete: Yes Emergency Medical Condition: Yes Medical Record Reviewed: Yes (Patient was indeed seen last night. His exam was compatible with left inguinal lymphadenopathy. He was discharged home with a prescription for Cleocin and with instructions to follow-up with his primary care physician pending resolution of the lymphadenopathy. Other medical issues for him include hypertension and bipolar disorder. He also has the history of the recent bilateral herniorrhaphy complicated by the intra-abdominal fluid collection postoperatively. The fluid collection was not an abscess.) Differential Diagnosis Differential diagnosis of abdominal pain includes but is not limited to gastritis, pancreatitis, hepatitis, gastroenteritis, constipation, urinary retention, peptic ulcer disease, diverticulitis or appendicitis Narrative Course This patient presents with a chief complaint of a lump in his left lower abdomen which is tender. He is concerned about intra-abdominal abscess. The exam is most compatible with scar tissue. He does not have any systemic signs or symptoms of infection such as fever. He had a normal white blood count yesterday. I have a low index of suspicion for a serious abdominal pathology. However, I have ordered the requested CT. In addition, the patient is complaining with diarrhea. He states that the diarrhea is similar to previous C. difficile. Test for C. difficile toxin has been ordered. CBC & BMP Diagram 02/08/18 21:00 Total Protein 7.4, Albumin 3.5, Calcium Level 8.9, Alkaline Phosphatase 70, Aspartate Amino Transf (AST/SGOT) 22, Alanine Aminotransferase (ALT/SGPT) 17, Total Bilirubin 0.[address] abd/pelvis: Lung bases are clear. No significant abnormality in the liver, spleen, adrenals , kidneys are pancreas. Tiny bilateral renal cysts. No calcified gallstones. There is some scarring in the anterior abdominal wall. Previous partial colonic resection. No obstruction, free fluid or free air. No adenopathy. The patient has not yet stooled in the emergency department. Therefore, no stool for C. difficile toxin has been obtained. The history, exam, diagnostic testing, and current condition do not suggest any significant pathology to warrant further testing, continued ED treatment, admission, or surgical evaluation at this point. No EMC was found. The patient 's condition is stable and appropriate for discharge. Diagnosis Primary Impression: Abdominal pain Qualified Codes: R10.32 - Left lower quadrant pain Patient Instructions: Abdominal Pain (ED), General Instructions Disposition: 01 DISCHARGE HOME Condition: Stable Ina Lorenzo MD Feb 08, 2018 21:30
[2018-02-08] MEDS ORDERED: IOHEXOL 350 MG/ML 10 ML VIAL (for RAD DIAG) IVCONTRAST ONE (21:40)
[2018-02-08 21:59] LABS: ALBUMIN 3.5 GM/DL (3.4-5.0); ALKALINE PHOSPHATASE 70 U/L (45-117); ALT (GPT) 17 U/L (12-78); AST (GOT) 22 U/L (15-37); BICARBONATE 28.2 MEQ/L (21.0-32.0); BLOOD UREA NITROGEN 25 MG/DL (7-18); CALCIUM 8.9 MG/DL (8.5-10.1); CHLORIDE 103 MEQ/L (98-107); CREATININE 1.02 MG/DL (0.60-1.30); GLOMERULAR FILTRATION RATE 75 ML/MIN (>89); GLUCOSE,RANDOM 83 MG/DL (74-106); SODIUM (NA) 139 MEQ/L (136-145); TOTAL BILIRUBIN ADULT 0.2 MG/DL (0.2-1.0); TOTAL PROTEIN 7.4 GM/DL (6.4-8.2)
--- NOTE | 2018-02-08 22:23 | RADRPT ---
EXAM DATE/TIME: 02/08/2018 21:30 [place] COMPARISON: No previous studies available for comparison. INDICATIONS : Abdominal pain. IV CONTRAST: 100 cc Omnipaque 350 (iohexol) IV ORAL CONTRAST: No oral contrast ingested. RADIATION DOSE: 8.70 CTDIvol (mGy) MEDICAL HISTORY : Hypertension. SURGICAL HISTORY : Colon resection. Inguinal hernia repair. ENCOUNTER: Initial ACUITY: 1 day PAIN SCALE: 5/10 LOCATION: abdomen TECHNIQUE: Volumetric scanning of the abdomen and pelvis was performed. Using automated exposure control and ad justment of the mA and/or kV according to patient size, radiation dose was kept as low as reasonably achievable to obtain optimal diagnostic quality images. DICOM format image data is available electro nically for review and comparison. FINDINGS: Lung bases are clear. No significant abnormality in the liver, spleen, adrenals, kidneys are pancreas . Tiny bilateral renal cysts. No calcified gallstones. There is some scarring in the anterior abdominal wall. Previous partial colonic resection. No obstruc tion, free fluid or free air. No adenopathy. CONCLUSION: 1. No acute findings within the abdomen and pelvis. Postsurgical changes as above. Guy Villar MD on February 08, 2018 at 22:17 Board Certified Radiologist. This report was verified electronically.
== END 2018-02-08 22:53 | disposition home or self-care (01) ==
LOC: NEPE 19:42
DX: R10.32 Left lower quadrant pain (principal); I10 Essential (primary) hypertension; Z72.0 Tobacco use
CPT/HCPCS: 74177; 80053; 83605; 85025; 96374; 96375; 99284; J2270; J2405; Q9967

== ENCOUNTER 2018-03-01 11:22 | Emergency (ER) | payer MEDICARE, MEDICAID ==
[~2018-03-01] VITALS: Ht 177.8 cm; Wt 87.0 kg
[2018-03-01 11:42] VITALS: BP 127/77; PULSE 78; RESP 17; TEMP 98.7; O2SAT 97
[2018-03-01 12:39] LABS: BACTERIA, URINE RARE /hpf; BILIRUBIN, URINE NEG (NEG); BLOOD, URINE NEG (NEG); GLUCOSE,URINE NEG (NEG); KETONE, URINE TRACE mg/dL (NEG); MUCUS URINE MANY /lpf (OCC); NITRITE,URINE NEG (NEG); SQUAMOUS EPITHELIAL CELL URINE <1 /hpf (0-5); URINE COLOR YELLOW (YELLW/STRAW); URINE LEUKOCYTE ESTERASE NEG (NEG)
[2018-03-01 12:51] VITALS: BP 136/77; PULSE 68; RESP 18; O2SAT 98
[2018-03-01 12:52] VITALS: BP 136/77; PULSE 68; RESP 18; O2SAT 98
[2018-03-01] MEDS ORDERED: AMLO10TA2 PO (12:59)
[2018-03-01] MEDS ORDERED: DIVA250ER PO (12:59)
[2018-03-01] MEDS ORDERED: CELE20TA PO (12:59)
[2018-03-01 13:43] LABS: AUTOMATED NEUTROPHIL # 4.1 TH/MM3 (1.8-7.7); BASOPHIL % 0.4 % (0.0-2.0); EOSINOPHIL # 0.1 TH/MM3 (0-0.4); EOSINOPHIL % 2.4 % (0.0-4.0); HEMOGLOBIN 15.3 GM/DL (13.0-17.0); LYMPHOCYTE # 1.3 TH/MM3 (1.0-4.8); MEAN CELL VOLUME 91.8 FL (80.0-100.0); MEAN CORPUSCULAR HEMOGLOBIN 31.3 PG (27.0-34.0); MEAN CORPUSCULAR HGB CONC 34.1 % (32.0-36.0); MEAN PLATELET VOLUME 9.3 FL (7.0-11.0); MONO % 8.2 % (0.0-8.0); MONOCYTE # 0.5 TH/MM3 (0-0.9); PLATELET COUNT 237 TH/MM3 (150-450); RED CELL DISTRIBUTION WIDTH 13.3 % (11.6-17.2); WHITE BLOOD COUNT 6.1 TH/MM3 (4.0-11.0)
--- NOTE | 2018-03-01 13:44 | PD ---
HPI Chief Complaint: Abdominal Pain Time Seen by Provider: 12:51 Travel History International Travel<30 days: No Contact w/Intl Traveler<30days: No Traveled to known affect area: No History of Present Illness HPI Patient presents to the ER with left groin swelling/pain, bilateral calf pain and LE weakness. On December 21 patient reports having for hernia repair surgeries. He subsequently developed an abscess which was drained. Then reports developing C. difficile which was successfully treated. Complaining of left groin "knot" and pain radiating to bilateral lower extremities primarily in the calf area. He denies any fever, chills, vomiting, chest pain, shortness of breath, recent travel. Does report increased fatigue some nausea, bilateral calf pain, and the left groin pain. Of note, patient came to ER with the same groin pain and LE weakness last month, states the only change is the symptoms worsening. At that time mariam CT scan showed no acute findings. He was sent to ER by his doctor for L spine MRI without contrast. PFSH Past Medical History Bipolar Disorder: Yes Anxiety: Yes Heart Rhythm Problems: No Cardiac Catheterization: No Cardiovascular Problems: Yes (HTN) High Cholesterol: No Congestive Heart Failure: No Diabetes: No Diminished Hearing: No Glaucoma: Yes Heparin Induced Thrombocytopen: No Hypertension: Yes Inguinal Hernia: Yes Psychiatric: Yes (bipolar, PTSD, anxiety) Immunizations Current: Yes Thyroid Disease: Yes ("HYPOTHYRODISM") Past Surgical History Abdominal Surgery: Yes (HERNIA RX, COLON RESECTION) Coronary Artery Bypass Graft: No Family History Narrative Family History Diabetes, hypertension, congestive heart failure Social History Alcohol Use: Yes (MODERATE) Tobacco Use: Yes Substance Use: No Allergies-Medications (Allergen,Severity, Reaction): Coded Allergies: acetaminophen (Verified Allergy, Severe, Seizures, 03/01/18) propoxyphene (Verified Allergy, Severe, Seizures, 03/01/18) Reported Meds & Prescriptions Reported Meds & Active Scripts Active [place] (Hydrocodone-Acetaminophen) 5 Mg-325 Mg Tab 1 Tab PO Q6H PRN 2 Days Acidophilus/l-Sporogenes (Lactobacillus Acidophilus) 35 Million Cell-25 Million Cell Tab 1 Tab PO Q12HR Reported Amlodipine (Amlodipine Besylate) 10 Mg Tab 10 Mg PO HS Celexa (Citalopram Hydrobromide) 20 Mg Tab 20 Mg PO HS Depakote ER (Divalproex Sodium) 250 Mg Hero 750 Mg PO HS Aspirin 81 Mg Chew 81 Mg CHEW DAILY Review of Systems Except as stated in HPI: all other systems reviewed are Neg Physical Exam Narrative GENERAL: No acute distress SKIN: Focused skin assessment warm/dry. HEAD: Atraumatic. Normocephalic. EYES: Pupils equal and round. No scleral icterus. No injection or drainage. Extraocular muscles intact bilaterally. ENT: No nasal bleeding or discharge. Mucous membranes pink and moist. NECK: Trachea midline. No JVD. Supple, full range of motion. CARDIOVASCULAR: Regular rate and rhythm. No murmur appreciated. RESPIRATORY: No accessory muscle use. Clear to auscultation. Breath sounds equal bilaterally. GASTROINTESTINAL: Abdomen soft, nontender abdomen but tender-left groin/ palpable painful circular, non fluctuant mass, nondistended. Hepatic and splenic margins not palpable. MUSCULOSKELETAL: No obvious deformities. No clubbing. No cyanosis. No edema. 5 /5 strength bilat LE. Very mild L-spine TTP. Sensation intact bilateral lower extremities. 2+ DP pulses bilaterally. Normal color bilat LE and warm to touch (not cool). NEUROLOGICAL: Awake and alert. No obvious cranial nerve deficits. Motor grossly within normal limits. Normal speech. PSYCHIATRIC: Appropriate mood and affect; insight and judgment normal. Data Data Last Documented VS Vital Signs Date Time Temp Pulse Resp B/P (MAP) Pulse Ox O2 Delivery O2 Flow Rate FiO2 03/01/18 16:26 63 15 112/67 (82) 98 Room Air 03/01/18 11:42 98.7 Orders Orders Complete Blood Count With Diff (03/01/18 11:45) Comprehensive Metabolic Panel (03/01/18 11:45) Urinalysis - C+S If Indicated (03/01/18 11:45) Iv Access Insert/Monitor (03/01/18 11:45) Oxygen Administration (03/01/18 11:45) Oximetry (03/01/18 11:45) Lipase (03/01/18 11:45) Prothrombin Time / Inr (Pt) (03/01/18 13:30) Act Partial Throm Time (Ptt) (03/01/18 13:30) Us Leg Venous Doppler Bilat (03/01/18 13:30) Mri L Spine W/O Contrast (03/01/18 14:31) Ondansetron Inj (Zofran Inj) (03/01/18 15:00) Acetamin-Hydrocod 325-5 Mg ([place] 5-325 (03/01/18 17:30) Labs Laboratory Tests Test 03/01/18 11:57 03/01/18 13:15 Urine Color YELLOW Urine Turbidity CLEAR Urine pH 6.0 Urine Specific [place] 1.032 Urine Protein 30 mg/dL Urine Glucose (UA) NEG mg/dL Urine Ketones TRACE mg/dL Urine Occult Blood NEG Urine Nitrite NEG Urine Bilirubin NEG Urine Urobilinogen 2.0 MG/DL Urine Leukocyte Esterase NEG Urine RBC LESS THAN 1 /hpf Urine WBC 1 /hpf Urine Squamous Epithelial Cells <1 /hpf Urine Bacteria RARE /hpf Urine Mucus MANY /lpf Microscopic Urinalysis Comment CULT NOT INDICATED White Blood Count 6.1 TH/MM3 Red Blood Count 4.90 MIL/MM3 Hemoglobin 15.3 GM/DL Hematocrit 45.0 % Mean Corpuscular Volume 91.8 FL Mean Corpuscular Hemoglobin 31.3 PG Mean Corpuscular Hemoglobin Concent 34.1 % Red Cell Distribution Width 13.3 % Platelet Count 237 TH/MM3 Mean Platelet Volume 9.3 FL Neutrophils (%) (Auto) 67.0 % Lymphocytes (%) (Auto) 22.0 % Monocytes (%) (Auto) 8.2 % Eosinophils (%) (Auto) 2.4 % Basophils (%) (Auto) 0.4 % Neutrophils # (Auto) 4.1 TH/MM3 Lymphocytes # (Auto) 1.3 TH/MM3 Monocytes # (Auto) 0.5 TH/MM3 Eosinophils # (Auto) 0.1 TH/MM3 Basophils # (Auto) 0.0 TH/MM3 CBC Comment DIFF FINAL Differential Comment Prothrombin Time 10.1 SEC Prothromb Time International Ratio 1.0 RATIO Activated Partial Thromboplast Time 24.9 SEC Blood Urea Nitrogen 14 MG/DL Creatinine 0.98 MG/DL Random Glucose 78 MG/DL Total Protein 7.5 GM/DL Albumin 3.6 GM/DL Calcium Level 8.3 MG/DL Alkaline Phosphatase 66 U/L Aspartate Amino Transf (AST/SGOT) 22 U/L Alanine Aminotransferase (ALT/SGPT) 21 U/L Total Bilirubin 0.4 MG/DL Sodium Level 140 MEQ/L Potassium Level 4.3 MEQ/L Chloride Level 105 MEQ/L Carbon Dioxide Level 31.2 MEQ/L Anion Gap 4 MEQ/L Estimat Glomerular Filtration Rate 79 ML/MIN Lipase 334 U/L MDM Medical Decision Making Medical Screen Exam Complete: Yes Emergency Medical Condition: Yes Interpretation(s) U/S: FINDINGS: RIGHT LEG: There is normal compressibility of the deep venous system from the inguinal region to the proximal calf. No echogenic clot is seen in the lumen of the common femoral, femoral, popliteal, and posterior tibial veins. There is a normal response of the venous system to proximal and distal augmentation and respiration. LEFT LEG: There is normal compressibility of the deep venous system from the inguinal region to the proximal calf. No echogenic clot is seen in the lumen of the common femoral, femoral, popliteal, and posterior tibial veins. There is a normal response of the venous system to proximal and distal augmentation and respiration. There is an anechoic avascular lesion in the popliteal fossa on the right measuring 5.1 x 1.8 x 2.3 cm. The palpable lump in the left inguinal region is associated with an area of shadowing which may represent mesh from the recent hernia repair. However, no fluid collection CONCLUSION: 1. No DVT is identified within either lower extremity. 2. There is a Chester's cyst in the right popliteal fossa. 3. Palpable lump in the left inguinal region demonstrates a shadowing structure which potentially could represent mesh from the recent hernia repair. However, no fluid collection is seen. MRI L spine w/o: FINDINGS: The most caudal appearing lumbar vertebra is numbered as L5. VERTEBRAE: Bone marrow signal is within normal limits the vertebral body height is maintained. There is no anterolisthesis or retro-listhesis. CONUS: Normal level and configuration. T12-L1: Minimal diffuse disc bulge. No spinal canal stenosis or neural foraminal stenosis is present. L1-L2: There is disc desiccation with a diffuse disc bulge. No spinal canal stenosis or neural foraminal stenosis is present. L2-L3: There is a mild disc bulge with mild facet hypertrophy. No spinal canal stenosis or neural foraminal stenosis is present. L3-L4: There is a minimal diffuse disc bulge and mild facet hypertrophy. No spinal canal stenosis or neural foraminal stenosis is present. L4-L5: There is a diffuse disc bulge with slight effacement of the left lateral recess. Mild facet hypertrophy is present. There is no spinal canal stenosis or neural foraminal stenosis. L5-S1: Mild facet hypertrophy. No spinal canal stenosis or neural foraminal stenosis. The visualized paraspinous structures demonstrate no acute finding. CONCLUSION: Mild multilevel degenerative disc disease. However, no spinal canal stenosis or neural foraminal stenosis is present. Differential Diagnosis DVT, abscess, lymphadenitis Narrative Course Patient presents with L groin pain and bilat LE weakness that has been present since atleast last month and has progressed. U/S and MRI and labs done. Spoke to both patient's PCP and Gen surg. Patient d/c'd with pain meds (norco which patient staes he tolerates without problems) and is to followup with surgeon next week or return to ER as needed. He is afebrile, normal white count. Workup shows no indication for acute intervention. Physician Communication Physician Communication [id number]: Dr Rick Arredondo-> Discussed workup with PCP. Stated patient needs to f/ u with surgeon. 1700: Dr. Ramos-> Patient needs to followup with him. Have him either call for scheduled appointment or walk in next Monday or Monday. Discussed with patient and he's concerned about being homeless, living in the [facility], with the groin pain. Discussed with ER Dairy Bacteriologist. 1720: Called Dr. Ramos back and discussed transfering patient to [facility] where he had the surgery and where Dr. Nobles has privileges. Stated that when patient was in the hospital he was belligerent, used racial slurs, and caused problems in the hospital. He wants him o f/u in his clinic next or Mon. I asked if he could come tomorrow, he said "no, I'm operating tomorrow, and I don't want one of the PAs to be subjected to his behavior." I discussed with the patient following up next week, which he was agreeable to do. He said he needed a way home, and the arranged taxi for him. I will give him a short supply of pain meds. Of note, he can tolerate vicodin and was given 1 in the ER. Diagnosis Primary Impression: Left groin pain Patient Instructions: General Instructions Additional Instructions: Followup with Dr. Nobles next Monday or Monday as a walk in or call for scheduled appointment. Return to ER immediately for fever, vomiting, inability to pass gas or move bowels, worsening pain, or for any new/worsening/worrisome symptoms. Scripts Hydrocodone-Acetaminophen ([place]) 5 Mg-325 Mg Tab 1 TAB PO Q6H Y for PAIN for 2 Days, #8 TAB 0 Refills Prov: Linda Diaz MD 03/01/18 Disposition: 01 DISCHARGE HOME Condition: Stable Linda Diaz MD Mar 01, 2018 13:43
[2018-03-01 13:58] LABS: ALKALINE PHOSPHATASE 66 U/L (45-117); TOTAL BILIRUBIN ADULT 0.4 MG/DL (0.2-1.0); TOTAL PROTEIN 7.5 GM/DL (6.4-8.2)
[2018-03-01 13:59] LABS: ALBUMIN 3.6 GM/DL (3.4-5.0); ALT (GPT) 21 U/L (12-78); AST (GOT) 22 U/L (15-37); BICARBONATE 31.2 MEQ/L (21.0-32.0); BLOOD UREA NITROGEN 14 MG/DL (7-18); CALCIUM 8.3 MG/DL (8.5-10.1); CHLORIDE 105 MEQ/L (98-107); CREATININE 0.98 MG/DL (0.60-1.30); GLOMERULAR FILTRATION RATE 79 ML/MIN (>89); GLUCOSE,RANDOM 78 MG/DL (74-106); SODIUM (NA) 140 MEQ/L (136-145)
--- NOTE | 2018-03-01 14:57 | RADRPT ---
EXAM DATE/TIME: 03/01/2018 14:09 [facility] COMPARISON: CT ABDOMEN & PELVIS W CONTRAST, February 08, 2018, 21:30. INDICATIONS : Bilateral leg pain. MEDICAL HISTORY : Hypertension. Thyroid disease. C-diff. Glaucoma. Inguinal hernia. Bipolar. SURGICAL HISTORY : Hernia repair. Colon resection. ENCOUNTER: Initial ACUITY: 1 day PAIN SCORE: 0/10 LOCATION: Bilateral leg. TECHNIQUE: Venous ultrasound of the left and right leg was performed from the inguinal ligament to the proximal calf. Real-time, color Doppler and spectral tracing, compression and augmentation techniques were us ed. FINDINGS: RIGHT LEG: There is normal compressibility of the deep venous system from the inguinal region to the proximal ca lf. No echogenic clot is seen in the lumen of the common femoral, femoral, popliteal, and posterior tibial veins. There is a normal response of the venous system to proximal and distal augmentation an d respiration. LEFT LEG: There is normal compressibility of the deep venous system from the inguinal region to the proximal ca lf. No echogenic clot is seen in the lumen of the common femoral, femoral, popliteal, and posterior tibial veins. There is a normal response of the venous system to proximal and distal augmentation an d respiration. There is an anechoic avascular lesion in the popliteal fossa on the right measuring 5.1 x 1.8 x 2.3 c m. The palpable lump in the left inguinal region is associated with an area of shadowing which may re present mesh from the recent hernia repair. However, no fluid collection CONCLUSION: 1. No DVT is identified within either lower extremity. 2. There is a Chester's cyst in the right popliteal fossa. 3. Palpable lump in the left inguinal region demonstrates a shadowing structure which potentially cou ld represent mesh from the recent hernia repair. However, no fluid collection is seen. Davian Lam MD on March 01, 2018 at 14:52 Board Certified Radiologist. This report was verified electronically.
[2018-03-01] MEDS ORDERED: ONDANSETRON HCL 4 MG/2 ML VIAL IV PUSH ONE (15:00)
[2018-03-01 16:26] VITALS: BP 112/67; PULSE 63; RESP 15; O2SAT 98
--- NOTE | 2018-03-01 16:34 | RADRPT ---
EXAM DATE/TIME: 03/01/2018 15:38 [facility] COMPARISON: No previous studies available for comparison. INDICATIONS : Progressive bilateral lower extremity weakness. Left groin and calf pain. MEDICAL HISTORY : Hypertension. SURGICAL HISTORY : Umbilical hernia repair. Total knee replacement, left. Colostomy. ENCOUNTER: Subsequent ACUITY: 2 day PAIN SCORE: 0/10 LOCATION: back. TECHNIQUE: Multiplanar multisequence MRI of the lumbar spine was performed without contrast. FINDINGS: The most caudal appearing lumbar vertebra is numbered as L5. VERTEBRAE: Bone marrow signal is within normal limits the vertebral body height is maintained. There is no anter olisthesis or retro-listhesis. CONUS: Normal level and configuration. T12-L1: Minimal diffuse disc bulge. No spinal canal stenosis or neural foraminal stenosis is present. L1-L2: There is disc desiccation with a diffuse disc bulge. No spinal canal stenosis or neural foraminal rachele nosis is present. L2-L3: There is a mild disc bulge with mild facet hypertrophy. No spinal canal stenosis or neural foraminal stenosis is present. L3-L4: There is a minimal diffuse disc bulge and mild facet hypertrophy. No spinal canal stenosis or neural foraminal stenosis is present. L4-L5: There is a diffuse disc bulge with slight effacement of the left lateral recess. Mild facet hypertrop hy is present. There is no spinal canal stenosis or neural foraminal stenosis. L5-S1: Mild facet hypertrophy. No spinal canal stenosis or neural foraminal stenosis. The visualized paraspinous structures demonstrate no acute finding. CONCLUSION: Mild multilevel degenerative disc disease. However, no spinal canal stenosis or neural foraminal sten osis is present. Davian Lam MD on March 01, 2018 at 16:28 Board Certified Radiologist. This report was verified electronically.
[2018-03-01 16:41] LABS: PROTHROMBIN TIME - PATIENT 10.1 SEC (9.8-11.6)
[2018-03-01] MEDS ORDERED: ACETAMINOPHEN/HYDROcodone 325 MG/5 MG TAB PO ONE (17:30)
[2018-03-01] MEDS ORDERED: NORC5TAB PO (18:15)
[2018-03-01 19:02] VITALS: BP 124/80; PULSE 71; RESP 19; O2SAT 99
== END 2018-03-01 19:05 | disposition home or self-care (01) ==
LOC: NEPE 11:22
DX: R10.32 Left lower quadrant pain (principal); R53.1 Weakness; M79.662 Pain in left lower leg; M79.661 Pain in right lower leg; I10 Essential (primary) hypertension; Z72.0 Tobacco use
CPT/HCPCS: 72148; 80053; 81001; 83690; 85025; 85610; 85730; 93970; 96374; 99284; J2405

== ENCOUNTER 2018-03-21 20:16 | Emergency (ER) | payer MEDICARE, MEDICAID ==
[~2018-03-21 20:16] MED LIST changes: +AMLO10TA2 PO; -CELE10TA PO; +CELE20TA PO; -CLIN150C14 PO; -DEPA500T3 PO; +DIVA250ER PO; +NORC5TAB PO; -NORV2.5T PO
[2018-03-21 20:35] VITALS: BP 143/82; PULSE 66; RESP 18; TEMP 97.8; O2SAT 99
--- NOTE | 2018-03-21 21:39 | PD ---
HPI Chief Complaint: Abdominal Pain Time Seen by Provider: 20:43 Travel History International Travel<30 days: No Contact w/Intl Traveler<30days: No Traveled to known affect area: No History of Present Illness HPI 57 YO M presents to the ED for evaluation of chronic left lower quadrant and bilateral calf pain. Abdominal pain onset after left inguinal hernia repair. Rated 6/10. Constant, no alleviating or exacerbating factors reported. Patient denies fever, chills, nausea, vomiting, constipation, diarrhea, melena, hematochezia, dysuria, hematuria, penile discharge. Patient states the abdominal pain is the same as his previous pain with no changes. Calf pain is described as "throbbing." Rated 7/10. No alleviating or exacerbating factors reported. Patient denies numbness, tingling, weakness, limitations range of motion of the extremities. He denies long periods of immobilization, history of cigarette smoking. He endorses distant history of DVT. He does not take blood thinners. Patient was evaluated by multiple providers for the abdominal pain. He states that he had an outpatient CT and followed up with the surgeon. The surgeon states that the patient's pain is caused by the implanted mesh. Patient is unsatisfied with this diagnosis. Patient states that he saw his primary care provider and was provided some sort of topical analgesic for the calf but has had no improvement of his symptoms. PFSH Past Medical History Bipolar Disorder: Yes Anxiety: Yes Heart Rhythm Problems: No Cardiac Catheterization: No Cardiovascular Problems: Yes (HTN) High Cholesterol: No Congestive Heart Failure: No Diabetes: No Diminished Hearing: No Glaucoma: Yes Heparin Induced Thrombocytopen: No Hypertension: Yes Inguinal Hernia: Yes Psychiatric: Yes (bipolar, PTSD, anxiety) Immunizations Current: Yes Thyroid Disease: Yes ("HYPOTHYRODISM") Past Surgical History Abdominal Surgery: Yes (HERNIA RX, COLON RESECTION) Coronary Artery Bypass Graft: No Social History Alcohol Use: No (DENIES) Tobacco Use: No (HX) Substance Use: No Allergies-Medications (Allergen,Severity, Reaction): Coded Allergies: acetaminophen (Verified Allergy, Severe, Seizures, 03/01/18) propoxyphene (Verified Allergy, Severe, Seizures, 03/01/18) Reported Meds & Prescriptions Reported Meds & Active Scripts Active [place] (Hydrocodone-Acetaminophen) 5 Mg-325 Mg Tab 1 Tab PO Q6H PRN 2 Days Acidophilus/l-Sporogenes (Lactobacillus Acidophilus) 35 Million Cell-25 Million Cell Tab 1 Tab PO Q12HR Reported Amlodipine (Amlodipine Besylate) 10 Mg Tab 10 Mg PO HS Celexa (Citalopram Hydrobromide) 20 Mg Tab 20 Mg PO HS Depakote ER (Divalproex Sodium) 250 Mg Hero 750 Mg PO HS Aspirin 81 Mg Chew 81 Mg CHEW DAILY Review of Systems Except as stated in HPI: all other systems reviewed are Neg Physical Exam Narrative GENERAL: Well-nourished, well-developed white male in no acute distress. SKIN: Focused skin assessment warm/dry. Multiple well-healed surgical incisions of the abdomen without signs of infection. HEAD: Normocephalic. EYES: No scleral icterus. No injection or drainage. NECK: Supple, trachea midline. No JVD or lymphadenopathy. CARDIOVASCULAR: Regular rate and rhythm without murmurs, gallops, or rubs. RESPIRATORY: Breath sounds clear and equal bilaterally. No accessory muscle use. GASTROINTESTINAL: Abdomen soft, non-tender, nondistended. Active bowel sounds. No palpable masses. MUSCULOSKELETAL: No cyanosis, or edema. Homans sign positive bilaterally. BACK: Nontender without obvious deformity. No CVA tenderness. Data Data Last Documented VS Vital Signs Date Time Temp Pulse Resp B/P (MAP) Pulse Ox O2 Delivery O2 Flow Rate FiO2 03/21/18 20:35 97.8 66 18 143/82 (102) 99 Orders Orders Us Leg Venous Doppler Bilat (03/21/18 21:23) [facility] Medical Decision Making Medical Screen Exam Complete: Yes Emergency Medical Condition: Yes Differential Diagnosis Chronic abdominal pain versus musculoskeletal pain versus malingering versus less likely DVT versus other Narrative Course 57-year-old male presents the ED for evaluation of chronic left lower quadrant abdominal pain that onset after having inguinal hernia repair. Patient has been here before with similar complaint. He states that he had outpatient CT and follow-up with the surgeon who think that the pain is caused by his implanted mesh. No changes in the pain. Patient states he is seeking second opinion. Also complains of bilateral calf pain. He endorses distant history of DVT. Not on blood thinners. Vitals reviewed. On exam the patient is resting comfortably in the exam room, watching TV. Abdominal exam is completely benign. Homans signs are positive bilaterally but there is no edema noted. Bilateral lower extremity US ordered and pending. Will provide the patient with the on-call general surgeon's name for second opinion follow-up. Patient' s signed out to Dr. Diaz at end of shift. Please see her note for disposition. Diagnosis Primary Impression: Abdominal pain, chronic, left lower quadrant Referrals: Wild Carlisle MD Disposition: 01 DISCHARGE HOME Condition: Stable Valeria Morocho March 21, 2018 21:39
--- NOTE | 2018-03-21 23:04 | RADRPT ---
EXAM DATE/TIME: 03/21/2018 22:17 [facility] COMPARISON: US LEG BILATERAL VENOUS DOPPLER, March 01, 2018, 14:09. INDICATIONS : Bilateral leg swelling. MEDICAL HISTORY : Hypertension. Thyroid disease. C-diff. Glaucoma. Inguinal hernia. Bipolar. SURGICAL HISTORY : Hernia repair. Colon resection. ENCOUNTER: Subsequent ACUITY: 2 months PAIN SCORE: 4/10 LOCATION: Bilateral legs. TECHNIQUE: Venous ultrasound of the left and right leg was performed from the inguinal ligament to the proximal calf. Real-time, color Doppler and spectral tracing, compression and augmentation techniques were us ed. FINDINGS: RIGHT LEG: There is normal compressibility of the deep venous system from the inguinal region to the proximal ca lf. No echogenic clot is seen in the lumen of the common femoral, femoral, popliteal, and posterior tibial veins. There is a normal response of the venous system to proximal and distal augmentation an d respiration. A large, 5.2 x 4.4 x 2.0 cm Chester's type cyst is identified in the popliteal fossa. LEFT LEG: There is normal compressibility of the deep venous system from the inguinal region to the proximal ca lf. No echogenic clot is seen in the lumen of the common femoral, femoral, popliteal, and posterior tibial veins. There is a normal response of the venous system to proximal and distal augmentation an d respiration. Echogenic material in the left inguinal region may be related to the hernia repair yordy cribed in surgical history. CONCLUSION: 1. No deep venous thrombosis in either lower extremity. 2. 5.2 x 4.4 x 2.0 cm Chester's type cyst in the right popliteal fossa. 3. Echogenic material with shadowing in the left inguinal region may representing mesh from the herni a repair described in surgical history. 4. No change from prior. Chao Hernandez MD on March 21, 2018 at 22:59 Board Certified Radiologist. This report was verified electronically.
--- NOTE | 2018-03-21 23:43 | PD ---
Physical Exam Narrative Please see mid-level provider's note for full history and physical. I have evaluated this patient. Presents complaining of chronic abdominal pain after surgery. States that the pain right now is no different from prior. Also complaining of calf pain. Ultrasound was negative for DVT but positive for Chester's cyst. Also requesting referral for a second opinion for surgery. Was given the contact information for on-call surgeon. She will be discharged and advised to take [id number] pain meds as needed. Data Data Last Documented VS Vital Signs Date Time Temp Pulse Resp B/P (MAP) Pulse Ox O2 Delivery O2 Flow Rate FiO2 03/21/18 20:35 97.8 66 18 143/82 (102) 99 Orders Orders Us Leg Venous Doppler Bilat (03/21/18 21:23) MDM Supervised Visit with ELVIS: Yes Diagnosis Primary Impression: Abdominal pain, chronic, left lower quadrant Additional Impression: Bakers cyst Qualified Codes: M71.21 - Synovial cyst of popliteal space [Chester], right knee Referrals: Wild Carlisle MD Patient Instructions: General Instructions Disposition: 01 DISCHARGE HOME Condition: Stable Linda Diaz MD March 21, 2018 23:43
[2018-03-21 23:53] VITALS: BP 128/78; PULSE 60; RESP 16; O2SAT 97
== END 2018-03-22 00:03 | disposition home or self-care (01) ==
LOC: NEPC 20:16
DX: R10.32 Left lower quadrant pain (principal); G89.29 Other chronic pain; M71.21 Synovial cyst of popliteal space [Baker], right knee; M79.661 Pain in right lower leg; M79.662 Pain in left lower leg; F31.9 Bipolar disorder, unspecified; I10 Essential (primary) hypertension; Z87.891 Personal history of nicotine dependence
CPT/HCPCS: 93970; 99284

== ENCOUNTER → 2018-04-05 | Outpatient (CLI) | DX: I73.9 Peripheral vascular disease, unspecified (principal) ==

== ENCOUNTER 2018-04-27 20:59 | Emergency (ER) | payer MEDICARE, MEDICAID ==
[2018-04-27 21:18] VITALS: BP 144/85; PULSE 72; RESP 16; TEMP 98.6; O2SAT 97
--- NOTE | 2018-04-27 21:27 | PD ---
HPI Chief Complaint: Abdominal Pain Time Seen by Provider: 21:24 Travel History International Travel<30 days: No Contact w/Intl Traveler<30days: No Traveled to known affect area: No History of Present Illness HPI 57-year-old male with history of hypertension, bipolar disorder, hernia repair, inguinal hernia, presents emergency department for evaluation of abdominal pain , acute onset this morning that has persisted throughout the day. Patient states he also has been "leaking mucus" from his rectum rather than having an actual bowel movement. Patient denies any nausea or vomiting. He denies any fever or chills. He denies any urinary symptoms. Patient has been seen here several times for abdominal pain. He has no other symptoms to report at this time. PFSH Past Medical History Bipolar Disorder: Yes Anxiety: Yes Heart Rhythm Problems: No Cardiac Catheterization: No Cardiovascular Problems: Yes (HTN) High Cholesterol: No Congestive Heart Failure: No Diabetes: No Diminished Hearing: No Glaucoma: Yes Heparin Induced Thrombocytopen: No Hypertension: Yes Inguinal Hernia: Yes Psychiatric: Yes (bipolar, PTSD, anxiety) Immunizations Current: Yes Thyroid Disease: Yes (HYPO) Past Surgical History Abdominal Surgery: Yes (HERNIA RX, COLON RESECTION) Coronary Artery Bypass Graft: No Social History Alcohol Use: No (DENIES) Tobacco Use: No (HX) Substance Use: No Allergies-Medications (Allergen,Severity, Reaction): Coded Allergies: acetaminophen (Verified Allergy, Severe, Seizures, 04/27/18) propoxyphene (Verified Allergy, Severe, Seizures, 04/27/18) Reported Meds & Prescriptions Reported Meds & Active Scripts Active [place] (Hydrocodone-Acetaminophen) 5 Mg-325 Mg Tab 1 Tab PO Q6H PRN 2 Days Acidophilus/l-Sporogenes (Lactobacillus Acidophilus) 35 Million Cell-25 Million Cell Tab 1 Tab PO Q12HR Reported Amlodipine (Amlodipine Besylate) 10 Mg Tab 10 Mg PO HS Celexa (Citalopram Hydrobromide) 20 Mg Tab 20 Mg PO HS Depakote ER (Divalproex Sodium) 250 Mg Hero 750 Mg PO HS Aspirin 81 Mg Chew 81 Mg CHEW DAILY Review of Systems Except as stated in HPI: all other systems reviewed are Neg Physical Exam Narrative GENERAL: Well-nourished male patient, in no acute distress. SKIN: Focused skin assessment warm/dry. Patient does have scars on the abdomen. HEAD: Atraumatic. Normocephalic. EYES: Pupils equal and round. No scleral icterus. No injection or drainage. ENT: No nasal bleeding or discharge. Mucous membranes pink and moist. NECK: Trachea midline. No JVD. CARDIOVASCULAR: Regular rate and rhythm. No murmur appreciated. RESPIRATORY: No accessory muscle use. Clear to auscultation. Breath sounds equal bilaterally. GASTROINTESTINAL: Abdomen soft, non-tender, nondistended. No guarding. No rebound tenderness hepatic and splenic margins not palpable. With my stethoscope, I was able to apply significant pressure to all quadrants of the abdomen without any reaction from the patient. There are normoactive bowel sounds. MUSCULOSKELETAL: No obvious deformities. No clubbing. No cyanosis. No edema. NEUROLOGICAL: Awake and alert. No obvious cranial nerve deficits. Motor grossly within normal limits. Normal speech. Data Data Last Documented VS Vital Signs Date Time Temp Pulse Resp B/P (MAP) Pulse Ox O2 Delivery O2 Flow Rate FiO2 04/27/18 21:18 98.6 72 16 144/85 (104) 97 Orders Orders Complete Blood Count With Diff (04/27/18 21:39) Comprehensive Metabolic Panel (04/27/18 21:39) Urinalysis - C+S If Indicated (04/27/18 21:39) Abdomen, Flat & Upright (04/27/18 ) Iv Access Insert/Monitor (04/27/18 21:39) Ecg Monitoring (04/27/18 21:39) Oximetry (04/27/18 21:39) Sodium Chlor 0.9% 1000 Ml Inj (Ns 1000 M (04/27/18 21:39) Sodium Chloride 0.9% Flush (Ns Flush) (04/27/18 21:45) Ketorolac Inj (Toradol Inj) (04/27/18 21:45) Labs Laboratory Tests Test 04/27/18 21:40 White Blood Count 7.5 TH/MM3 Red Blood Count 4.72 MIL/MM3 Hemoglobin 14.8 GM/DL Hematocrit 44.4 % Mean Corpuscular Volume 94.1 FL Mean Corpuscular Hemoglobin 31.4 PG Mean Corpuscular Hemoglobin Concent 33.4 % Red Cell Distribution Width 13.7 % Platelet Count 251 TH/MM3 Mean Platelet Volume 9.4 FL Neutrophils (%) (Auto) 63.6 % Lymphocytes (%) (Auto) 24.3 % Monocytes (%) (Auto) 9.1 % Eosinophils (%) (Auto) 2.5 % Basophils (%) (Auto) 0.5 % Neutrophils # (Auto) 4.8 TH/MM3 Lymphocytes # (Auto) 1.8 TH/MM3 Monocytes # (Auto) 0.7 TH/MM3 Eosinophils # (Auto) 0.2 TH/MM3 Basophils # (Auto) 0.0 TH/MM3 CBC Comment DIFF FINAL Differential Comment Urine Color YELLOW Urine Turbidity CLEAR Urine pH 5.5 Urine Specific [place] 1.037 Urine Protein NEG mg/dL Urine Glucose (UA) NEG mg/dL Urine Ketones 10 mg/dL Urine Occult Blood TRACE Urine Nitrite NEG Urine Bilirubin NEG Urine Urobilinogen LESS THAN 2.0 MG/DL Urine Leukocyte Esterase NEG Urine RBC 2 /hpf Urine WBC 1 /hpf Urine Hyaline Casts 2 /lpf Urine Mucus FEW /lpf Microscopic Urinalysis Comment CULT NOT INDICATED Blood Urea Nitrogen 26 MG/DL Creatinine 1.18 MG/DL Random Glucose 94 MG/DL Total Protein 7.4 GM/DL Albumin 3.8 GM/DL Calcium Level 8.8 MG/DL Alkaline Phosphatase 61 U/L Aspartate Amino Transf (AST/SGOT) 17 U/L Alanine Aminotransferase (ALT/SGPT) 20 U/L Total Bilirubin 0.4 MG/DL Sodium Level 140 MEQ/L Potassium Level 4.0 MEQ/L Chloride Level 104 MEQ/L Carbon Dioxide Level 26.9 MEQ/L Anion Gap 9 MEQ/L Estimat Glomerular Filtration Rate 64 ML/MIN MDM Medical Decision Making Medical Screen Exam Complete: Yes Emergency Medical Condition: Yes Medical Record Reviewed: Yes Differential Diagnosis Abdominal pain versus gastritis versus gastroenteritis versus colitis versus diverticulitis versus muscle spasm versus biliary colic versus UTI Narrative Course 57-year-old male presents emergency department for evaluation. Patient appears without distress. His abdomen is soft and nontender. There are normal active bowel sounds. Patient had a formed brown bowel movement here in the emergency department. Patient is treated for pain and given IV normal saline bolus. Lab work is ordered. Laboratory Tests Test 04/27/18 21:40 White Blood Count 7.5 TH/MM3 Red Blood Count 4.72 MIL/MM3 Hemoglobin 14.8 GM/DL Hematocrit 44.4 % Mean Corpuscular Volume 94.1 FL Mean Corpuscular Hemoglobin 31.4 PG Mean Corpuscular Hemoglobin Concent 33.4 % Red Cell Distribution Width 13.7 % Platelet Count 251 TH/MM3 Mean Platelet Volume 9.4 FL Neutrophils (%) (Auto) 63.6 % Lymphocytes (%) (Auto) 24.3 % Monocytes (%) (Auto) 9.1 % Eosinophils (%) (Auto) 2.5 % Basophils (%) (Auto) 0.5 % Neutrophils # (Auto) 4.8 TH/MM3 Lymphocytes # (Auto) 1.8 TH/MM3 Monocytes # (Auto) 0.7 TH/MM3 Eosinophils # (Auto) 0.2 TH/MM3 Basophils # (Auto) 0.0 TH/MM3 CBC Comment DIFF FINAL Differential Comment Urine Color YELLOW Urine Turbidity CLEAR Urine pH 5.5 Urine Specific [place] 1.037 Urine Protein NEG mg/dL Urine Glucose (UA) NEG mg/dL Urine Ketones 10 mg/dL Urine Occult Blood TRACE Urine Nitrite NEG Urine Bilirubin NEG Urine Urobilinogen LESS THAN 2.0 MG/DL Urine Leukocyte Esterase NEG Urine RBC 2 /hpf Urine WBC 1 /hpf Urine Hyaline Casts 2 /lpf Urine Mucus FEW /lpf Microscopic Urinalysis Comment CULT NOT INDICATED Blood Urea Nitrogen 26 MG/DL Creatinine 1.18 MG/DL Random Glucose 94 MG/DL Total Protein 7.4 GM/DL Albumin 3.8 GM/DL Calcium Level 8.8 MG/DL Alkaline Phosphatase 61 U/L Aspartate Amino Transf (AST/SGOT) 17 U/L Alanine Aminotransferase (ALT/SGPT) 20 U/L Total Bilirubin 0.4 MG/DL Sodium Level 140 MEQ/L Potassium Level 4.0 MEQ/L Chloride Level 104 MEQ/L Carbon Dioxide Level 26.9 MEQ/L Anion Gap 9 MEQ/L Estimat Glomerular Filtration Rate 64 ML/MIN Last Impressions Abdomen X-Ray 04/27/18 0000 Signed Impressions: CONCLUSION: Negative abdominal series. Findings are reviewed. Patient will be discharged home at this time. He is encouraged to follow-up with gastroenterology and his primary care provider. He agrees to return immediately with acute worsening of symptoms. Diagnosis Primary Impression: Abdominal pain Qualified Codes: R10.9 - Unspecified abdominal pain Referrals: [facility] Primary Care Physician Patient Instructions: Abdominal Pain (ED), General Instructions Additional Instructions: Follow-up gastroenterology Follow-up the primary care provider Return immediately with acute worsening symptoms Med/Other Pt SpecificInfo: No Change to Meds Disposition: 01 DISCHARGE HOME Condition: Stable Marisa Iniguez Apr 27, 2018 21:27
[2018-04-27] MEDS ORDERED: SODIUM CHLOR 0.9% 1000 ML INJ 1,000 ML IV SCH (21:39)
[2018-04-27] MEDS ORDERED: KETOROLAC TROMETHAMINE 30 MG/ML (IVP) VIAL IVP ONE (21:45)
[2018-04-27] MEDS ORDERED: SODIUM CHLORIDE 0.9% FLUSH 10 ML FLUSH IV FLUSH PRN (21:45)
[2018-04-27 22:06] LABS: AUTOMATED NEUTROPHIL # 4.8 TH/MM3 (1.8-7.7); BASOPHIL % 0.5 % (0.0-2.0); EOSINOPHIL # 0.2 TH/MM3 (0-0.4); EOSINOPHIL % 2.5 % (0.0-4.0); HEMATOCRIT 44.4 % (39.0-51.0); HEMOGLOBIN 14.8 GM/DL (13.0-17.0); LYMPH % 24.3 % (9.0-44.0); LYMPHOCYTE # 1.8 TH/MM3 (1.0-4.8); MEAN CELL VOLUME 94.1 FL (80.0-100.0); MEAN CORPUSCULAR HEMOGLOBIN 31.4 PG (27.0-34.0); MEAN CORPUSCULAR HGB CONC 33.4 % (32.0-36.0); MEAN PLATELET VOLUME 9.4 FL (7.0-11.0); MONO % 9.1 % (0.0-8.0); MONOCYTE # 0.7 TH/MM3 (0-0.9); NEUT % 63.6 % (16.0-70.0); PLATELET COUNT 251 TH/MM3 (150-450); RED BLOOD COUNT 4.72 MIL/MM3 (4.50-5.90); RED CELL DISTRIBUTION WIDTH 13.7 % (11.6-17.2); WHITE BLOOD COUNT 7.5 TH/MM3 (4.0-11.0)
[2018-04-27 22:09] LABS: BILIRUBIN, URINE NEG (NEG); BLOOD, URINE TRACE (NEG); GLUCOSE,URINE NEG (NEG); HYALINE CAST, URINE 2 /lpf (RARE); KETONE, URINE 10 mg/dL (NEG); MUCUS URINE FEW /lpf (OCC); NITRITE,URINE NEG (NEG); PH, URINE 5.5 (5.0-8.5); URINE COLOR YELLOW (YELLW/STRAW); URINE LEUKOCYTE ESTERASE NEG (NEG)
--- NOTE | 2018-04-27 22:16 | RADRPT ---
EXAM DATE: 04/27/2018 10:08 PM EDT AGE/SEX: 57 years / Male INDICATIONS: Lower abdomen pain. Patient stated previous perforated bowel. CLINICAL DATA: This is the patient's initial encounter. Patient reports that signs and symptoms have been present for 2 days and indicates a pain score of 10/10. MEDICAL/SURGICAL HISTORY: . Hypertension. Thyroid disease. PTSD. Bipolar disorder. Anxiety. Pre vious suicide attempt. Blood transfusion. Diverticulitis . Colon resection. Inguinal hernia repair. Left knee replacement. COMPARISON: No prior exams available for comparison. FINDINGS: Supine and upright views of the abdomen were performed. The abdominal bowel gas pattern is normal. Th ere appears to be a bowel anastomotic suture in the right lower quadrant. Clips are seen over the lef t inguinal region. No air-fluid levels are seen. No abnormal masses, calcifications, or organomegaly is seen. The visualized lower lungs are clear. No evidence of free intraperitoneal gas. The osseous s tructures are unremarkable. CONCLUSION: Negative abdominal series. Electronically signed by: Davian Estrada MD 04/27/2018 10:15 PM EDT
[2018-04-27 22:25] LABS: ALBUMIN 3.8 GM/DL (3.4-5.0); AST (GOT) 17 U/L (15-37); BICARBONATE 26.9 MEQ/L (21.0-32.0); BLOOD UREA NITROGEN 26 MG/DL (7-18); CALCIUM 8.8 MG/DL (8.5-10.1); CHLORIDE 104 MEQ/L (98-107); CREATININE 1.18 MG/DL (0.60-1.30); GLOMERULAR FILTRATION RATE 64 ML/MIN (>89); GLUCOSE,RANDOM 94 MG/DL (74-106); SODIUM (NA) 140 MEQ/L (136-145)
[2018-04-27 22:26] LABS: ALT (GPT) 20 U/L (12-78)
[2018-04-27 22:28] LABS: ALKALINE PHOSPHATASE 61 U/L (45-117); TOTAL BILIRUBIN ADULT 0.4 MG/DL (0.2-1.0); TOTAL PROTEIN 7.4 GM/DL (6.4-8.2)
== END 2018-04-27 23:08 | disposition home or self-care (01) ==
LOC: NEPE 20:59
DX: R10.30 Lower abdominal pain, unspecified (principal); I10 Essential (primary) hypertension; F31.9 Bipolar disorder, unspecified
CPT/HCPCS: 74019; 80053; 81001; 85025; 96361; 96374; 99284; J1885; J7030